=== PATIENT | male | born 2005 | race Two or more races ===

== ENCOUNTER 2023-10-06 11:14 | Outpatient (REF) | payer MEDICAID, SELFPAY ==
[2023-10-06 11:26] LABS: MANUAL DIFF FLAG NO
[2023-10-06 12:11] LABS: Basophils Percent Auto 0.4 % (0-2); Eosinophils Absolute Auto 0.2 X10*3/uL (0.0-0.4); Eosinophils Percent Auto 2.1 % (0-4); Hematocrit 43.2 % (42.0-52.0); Hemoglobin 15.2 g/dl (14.0-18.0); Imm Gran Abs Auto 0.03 X10*3/uL (0.00-0.03); Imm Gran Pct Auto 0.3 % (0.0-0.4); Lymphocytes Absolute Auto 3.7 X10*3/uL (1.2-4.9); Lymphocytes Percent Auto 40.9 % (20-40); Mean Corpuscular HGB Conc 35.2 g/dl (31.0-36.0); Mean Corpuscular Hemoglobin 32.5 pg (27.0-33.0); Mean Corpuscular Volume 92.5 fL (80.0-98.0); Mean Platelet Volume 10.2 fL (9.4-12.4); Monocytes Absolute Auto 0.5 X10*3/uL (0.1-1.2); Neutrophils Absolute Auto 4.6 x10*3/uL (2.0-8.3); Neutrophils Percent Auto 51.3 % (45-73); Platelet Count 229 X10*3/uL (160-400); Red Blood Count 4.67 X10*6/uL (4.60-5.80); Red Cell Distribution Width 13.4 % (11.0-16.0)
[2023-10-06 12:32] LABS: Estimated Average Glucose 103 mg/dL; Hemoglobin A1c % 5.2 % (<6.0)
[2023-10-06 13:27] LABS: Alanine Aminotransferase 20 U/L (0-40); Albumin Level 4.7 g/dL (3.5-5.0); Alkaline Phosphatase 74 U/L (39-117); Anion Gap 16 (12-20); Aspartate Amino Transferase 25 U/L (5-37); Bilirubin Total 1.2 mg/dL (0.0-1.0); Blood Urea Nitrogen 12 mg/dL (9-16); Calcium 10.2 mg/dL (8.4-10.2); Carbon Dioxide 26 mmol/L (22-29); Chloride 104 mmol/L (96-108); Cholesterol 144 mg/dL (<200); Estimated Glomerular Filt Rate > 60; Glucose Random 94 mg/dL (60-115); HDL Cholesterol 51 mg/dL (>40); LDL Cholesterol Calculated 75 mg/dL (<100); Potassium 4.4 mmol/L (3.3-5.1); Sodium 142 mmol/L (135-145); Total Protein 7.9 g/dL (6.5-8.0); Triglycerides 92 mg/dL (<150)
[2023-10-06 13:46] LABS: Thyroid Stimulating Hormone 1.87 uIU/mL (0.32-4.0)
== END 2023-10-06 11:15 | disposition home or self-care (01) ==
LOC: HO.LAB 11:14
PROVIDERS: PCP Internal Medicine; Visit Provider Internal Medicine
DX: Z00.01 Encounter for general adult medical examination with abnormal findings (principal); E66.9 Obesity, unspecified; F84.0 Autistic disorder; I10 Essential (primary) hypertension
CPT/HCPCS: 36415; 80053; 80061; 83036; 84443; 85025

== ENCOUNTER 2023-12-30 10:56 | Outpatient (AMB) | payer MEDICAID, SELFPAY ==
--- NOTE | 2023-12-30 10:58 | MHC.OFFVIS ---
Vital Signs 12/30/23 11:07 Weight 206 lb BP 155/64 H Blood Pressure Location Rt brachial Position Sitting Pulse 70 Intake Visit Reasons: Polypoid lesion scalp Intake Note: This patient presents for Polypoid lesion scalp. pt's grandmother c/o; reports pt was born with this, reports itchiness and now patient has a bald spot on the area from scratching. 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 The patient has history of cognitive deficits from . He is in the care and custody of his grandmother Susan Waters. He apparently has had this scalp lesion since he was a young child. However, this has increased in size. The grandmother therefore wants this excised. [facility] Medical History Scalp lesion Developmental delay, moderate Surgical History No pertinent past surgical history Social History Alcohol intake: never Patient Tobacco Use Status: Never used Tobacco Review of Systems Const Denies chills Card Denies chest pain, Denies dyspnea and Denies dyspnea on exertion Resp Denies cough, Denies dyspnea and Denies dyspnea on exertion GI Denies hematochezia and Denies change in bowel habits Denies hematuria and Denies difficulty urinating Musc Denies back pain and Denies limited range of motion Neuro Details: Developmental delay Denies focal weakness and Denies convulsions Psych Denies depression and Denies mood swings Physical Exam Vital Signs: Last Vital Signs Pulse 70 12/30/23 11:07 BP 155/64 H 12/30/23 11:07 Const General: comfortable and no acute distress HEENT Other: Scalp lesion left parietal area, about 8 mm in size, elevated, smooth and well-defined, fleshy Resp Effort & Inspection: normal respiratory effort Cardio Rate: regular rate GI Palpation (GI): Soft to palpation Assessment & Plan Assessment & Plan (1) Scalp lesion: Code(s): L98.9 - Disorder of the skin and subcutaneous tissue, unspecified Category: Medical Plan: His grandmother wants this scalp lesion excised because of increased in size. I explained to her the technique of this procedure under local anesthesia. I reviewed the risks, benefits, and alternatives. She wants to proceed The patient will therefore be brought back to the office for excision under local anesthesia. Coding Level of Care Code New Pt Level 3 (03885) Diagnoses Scalp lesion L98.9
[2023-12-30 11:07] VITALS: BP 155/64; PULSE 70
== END 2023-12-30 11:39 | disposition home or self-care (01) ==
PROVIDERS: PCP Internal Medicine; Visit Provider Surgery
DX: L98.9 Disorder of the skin and subcutaneous tissue, unspecified (principal)
CPT/HCPCS: 99203

== ENCOUNTER → 2023-12-30 10:56 | Outpatient (BNVA) | payer MEDICAID, SELFPAY | PROVIDERS: PCP Internal Medicine; Visit Provider Surgery | DX: L98.9 Disorder of the skin and subcutaneous tissue, unspecified (principal) | CPT/HCPCS: 99202 ==

== ENCOUNTER 2024-01-12 10:53 | Outpatient (AMB) | payer MEDICAID, SELFPAY ==
--- NOTE | 2024-01-12 10:54 | MHC.OFFVIS ---
Intake Visit Reasons: excision Polypoid lesion scalp Intake Note: Office procedure: excision polypoid lesion of the scalp. Watchguard Required: No Accompanied by: Grand Parent Allergies No Known Allergies [No Known Allergies*] Allergy (Unverified 01/12/24 10:55) HPI HPI excision Polypoid lesion scalp: Details: He is here for excision of a scalp lesion. [facility] Medical History Scalp lesion Developmental delay, moderate Surgical History No pertinent past surgical history Social History Alcohol intake: never Patient Tobacco Use Status: Never used Tobacco Office Procedures Excision Details: The area of the lesion was prepped and draped. Lidocaine 1% was used for local anesthesia. I made an elliptical incision around the base of the lesion with a blade 15. This was carried down through the full-thickness of the skin and subcutaneous fat to excise this entire lesion. The lesion was about 0.8 mm in size. This was sent as specimen. The incision was closed with full-thickness nylon 3-0 simple interrupted sutures. Bacitracin was applied. He tolerated procedure well. There were no immediate complications. [id number] scalp/neck/hands/feet/genitalia 0.6cm-1cm Procedure code (CPT) selection complete Assessment & Plan Assessment & Plan (1) Scalp lesion: Code(s): L98.9 - Disorder of the skin and subcutaneous tissue, unspecified Category: Medical Plan: Excision was done under local anesthesia. He tolerated the procedure well. There was minimal blood loss. He will be seen in the office her follow-up for removal sutures. He was given wound care instructions. Coding Level of Care Code Procedure Only Diagnoses Scalp lesion L98.9 CPT Codes Scalp/Neck/Hands/Feet/Genetalia - CPT: 60941-Ncfvviay scalp/neck/hands/feet/genitalia 0.6cm-1cm ([id number])
== END 2024-01-12 11:14 | disposition home or self-care (01) ==
LOC: HO.HGS 10:53
PROVIDERS: PCP Internal Medicine; Visit Provider Surgery
DX: L72.0 Epidermal cyst (principal)
CPT/HCPCS: 11421

== ENCOUNTER 2024-01-12 10:53 | Outpatient (REF) | payer MEDICAID, SELFPAY | END 2024-01-12 10:54 | disposition home or self-care (01) | LOC: HO.LNP 10:53 | PROVIDERS: PCP Internal Medicine; Visit Provider Surgery | DX: L98.9 Disorder of the skin and subcutaneous tissue, unspecified (principal); D22.9 Melanocytic nevi, unspecified; L72.0 Epidermal cyst | CPT/HCPCS: 11421; 88304; 88305 ==

== ENCOUNTER 2024-02-02 09:47 | Outpatient (AMB) | payer MEDICAID, SELFPAY ==
--- NOTE | 2024-02-02 09:56 | A.OFFVIS_ITS ---
Vital Signs 02/02/24 10:03 Weight 205 lb 15.999 oz Intake Visit Reasons: s/p remove sutures excision Polypoid lesion scalp Intake Note: This patient presents for suture removal status post excision polypoid lesion of the scalp. Pt grandmother c/o; reports no complaints. Shelter Monitor Required: No Accompanied by: Grand Parent Allergies No Known Allergies [No Known Allergies*] Allergy (Unverified 02/02/24 09:57) HPI HPI s/p remove sutures excision Polypoid lesion scalp: Details: He is here for follow-up after excision of a scalp lesion last 01/13/2024. He tolerated the procedure well. He denies significant complaints. [facility] Medical History Scalp lesion Developmental delay, moderate Surgical History No pertinent past surgical history Social History Alcohol intake: never Patient Tobacco Use Status: Never used Tobacco Review of Systems Const Denies chills and Denies fever(s) Physical Exam Const General: comfortable and no acute distress HEENT Other: Excision site is well healed, not infected Assessment & Plan Assessment & Plan (1) Scalp lesion: Code(s): L98.9 - Disorder of the skin and subcutaneous tissue, unspecified Category: Medical Plan: Status post excision. The incision is well healed. His sutures were removed. His path report shows a melanocytic nevus and a epidermal cyst. He can follow up on a p.r.n. basis. Coding Level of Care Code Global (48347) Diagnoses Scalp lesion L98.9
== END 2024-02-02 10:08 | disposition home or self-care (01) ==
PROVIDERS: PCP Internal Medicine; Visit Provider Surgery
DX: L98.9 Disorder of the skin and subcutaneous tissue, unspecified (principal)
CPT/HCPCS: 99024

== ENCOUNTER → 2024-02-02 09:47 | Outpatient (BNVA) | payer MEDICAID, SELFPAY | PROVIDERS: PCP Internal Medicine; Visit Provider Surgery | DX: L98.9 Disorder of the skin and subcutaneous tissue, unspecified (principal) | CPT/HCPCS: 99212 ==

== ENCOUNTER 2024-06-05 10:05 | Outpatient (AMB) | payer MEDICAID, SELFPAY ==
--- NOTE | 2024-06-05 10:05 | A.OFFVIS_ITS ---
Vital Signs 06/05/24 10:12 Height 5 ft 3 in Weight 199 lb BMI 35.2 BP 144/62 H Blood Pressure Location Lt brachial Position Sitting Pulse 115 H Intake Visit Reasons: Sebaceous cyst scalp Intake Note: Patient is seen in office for recurrent sebaceous cyst of the scalp. 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 He has had this for several months now. One of them had become swollen and apparently had drained according to his family He denies any significant pain at this time He has known developmental delay and has cognitive deficits. [facility] Medical History (Updated 06/05/24 @ 10:22 by Diego Lafleur MD) Scalp mass Scalp lesion Developmental delay, moderate Surgical History No pertinent past surgical history Social History Alcohol intake: never Patient Tobacco Use Status: Never used Tobacco Review of Systems Const Denies chills and Denies fever(s) Card Denies chest pain, Denies dyspnea and Denies dyspnea on exertion Resp Denies cough, Denies dyspnea and Denies dyspnea on exertion GI Denies hematochezia and Denies change in bowel habits Denies hematuria and Denies difficulty urinating Musc Denies back pain and Denies limited range of motion Neuro Denies focal weakness and Denies convulsions Psych Denies depression and Denies mood swings Physical Exam Vital Signs: Last Vital Signs Pulse 115 H 06/05/24 10:12 BP 144/62 H 06/05/24 10:12 BMI result Body Mass Index 35.2 HEENT Other: Scalp mass, subcutaneous, about 1 cm, on the occipital area Scalp mass, subcutaneous, about 0.7 cm on the left parietal area Both are noninflamed Assessment & Plan Assessment & Plan (1) Scalp mass: Code(s): R22.0 - Localized swelling, mass and lump, head Category: Medical Plan: He has 2 scalp masses as described above. This are likely to be scalp cysts. I explained the technique of excision under local anesthesia. I reviewed the risks including but not limited to bleeding and infections, as well as the benefits and alternatives The patient and his family had given consent. This will be done in the office under local anesthesia on his next visit Coding Level of Care Code Est Pt Level 3 (35055) Diagnoses Scalp mass R22.0
[2024-06-05 10:12] VITALS: BP 144/62; PULSE 115; BMI 35.2
== END 2024-06-05 10:23 | disposition home or self-care (01) ==
LOC: HO.HGS 10:06
PROVIDERS: PCP Internal Medicine; Referring Provider Internal Medicine; Visit Provider Surgery
DX: R22.0 Localized swelling, mass and lump, head (principal)
CPT/HCPCS: 99213

== ENCOUNTER → 2024-06-05 10:05 | Outpatient (BNVA) | payer MEDICAID, SELFPAY | PROVIDERS: PCP Internal Medicine; Referring Provider Internal Medicine; Visit Provider Surgery | DX: R22.0 Localized swelling, mass and lump, head (principal) | CPT/HCPCS: 99212 ==

== ENCOUNTER 2024-06-22 09:44 | Outpatient (REF) | payer MEDICAID, SELFPAY ==
--- OUTSIDE RECORDS SUMMARY | 2024-06-22 13:59 | XMS_ITS | Encounter Summary ---
Author Organization [facility] Address [address] [place] [address] Phone Care Team Providers Care Furnace Utility Operator Name Role Phone Daniel Nunez MD Primary Care Provider [phone] Encounter Details Date Type Department Care Team (Late st Contact Info) Description 12/31/2011 Documentation EM Family Medicine [address] [place] [address] Family Medicine, Physician [address] [place] [address] Social History Tobacco Use Types [...] on filedocumented in this encounter Care Teams Furnace Utility Operator Relationship Specialty Start Date End Date Daniel Nunez MD 150 [place] [address] PCP - General 10/23/16 09/02/23 documented as of this encounter
--- OUTSIDE RECORDS SUMMARY | 2024-06-22 13:59 | XMS_ITS | Encounter Summary ---
Author Organization [facility] Address [address] [place] [address] Phone Care Team Providers Care Window Clerk Name Role Phone Daniel Nunez MD Primary Care Provider [phone] Encounter Details Date Type Department Care Team (Late st Contact Info) Description 10/22/2010 Documentation EM Family Medicine [address] [place] [address] Family Medicine, Physician [address] [place] [address] Social History Tobacco Use Types [...] on filedocumented in this encounter Care Teams Window Clerk Relationship Specialty Start Date End Date Daniel Nunez MD 150 [place] [address] PCP - General 10/23/16 09/02/23 documented as of this encounter
--- OUTSIDE RECORDS SUMMARY | 2024-06-22 13:59 | XMS_ITS | Encounter Summary ---
Author Organization [facility] Address [address] [place] [address] Phone Care Team Providers Care Microfilm Mounter Name Role Phone Daniel Nunez MD Primary Care Provider [phone] Encounter Details Date Type Department Care Team (Late st Contact Info) Description 09/01/2016 Documentation EM Family Medicine [address] [place] [address] Family Medicine, Physician [address] [place] [address] Social History Tobacco Use Types [...] on filedocumented in this encounter Care Teams Microfilm Mounter Relationship Specialty Start Date End Date Daniel Nunez MD 150 [place] [address] PCP - General 10/23/16 09/02/23 documented as of this encounter
--- OUTSIDE RECORDS SUMMARY | 2024-06-22 13:59 | XMS_ITS | Clinical Summary ---
Author Organization [employer] Address [address] [facility] [address] [place] [address] Care Team Providers Care Door Operator Name Role Phone Unavailable Primary Care [...] patient's age to complete this topic Insurance [facility]
--- OUTSIDE RECORDS SUMMARY | 2024-06-22 13:59 | XMS_ITS | Encounter Summary ---
Author Organization [facility] Address [address] [place] [address] Phone Care Team Providers Care Social Contact Worker Name Role Phone Daniel Nunez MD Primary Care Provider [phone] Encounter Details Date Type Department Care Team (Late st Contact Info) Description 10/22/2010 Documentation EM Family Medicine [address] [place] [address] Family Medicine, Physician [address] [place] [address] Social History Tobacco Use [...] on filedocumented in this encounter Care Teams Social Contact Worker Relationship Specialty Start Date End Date Daniel Nunez MD 150 [facility] [place] [address] PCP - General 10/23/16 09/02/23 documented as of this encounter
--- OUTSIDE RECORDS SUMMARY | 2024-06-22 13:59 | XMS_ITS | Encounter Summary ---
Author Organization [facility] Address [address] [place] [address] Phone Care Team Providers Care Machine Strap Buckler Name Role Phone Daniel Nunez MD Primary Care Provider Encounter Details Date Type Department Care Team (Late st Contact Info) Description 12/31/2011 Documentation EM Family Medicine [address] [place] [address] Family Medicine, Physician [address] [place] [address] Social History Tobacco Use Types [...] on filedocumented in this encounter Care Teams Machine Strap Buckler Relationship Specialty Start Date End Date Daniel Nunez MD 150 [facility] [place] [address] PCP - General 10/23/16 09/02/23 documented as of this encounter
--- OUTSIDE RECORDS SUMMARY | 2024-06-22 13:59 | XMS_ITS | Encounter Summary ---
Author Organization [facility] Address [address] [place] [address] Phone Care Team Providers Care Physician Advisor Name Role Phone Daniel Nunez MD Primary Care Provider [phone] Encounter Details Date Type Department Care Team (Late st Contact Info) Description 12/31/2011 Documentation EM Family Medicine [address] [place] [address] Family Medicine, Physician [address] [place] [address] Social History Tobacco Use Types [...] on filedocumented in this encounter Care Teams Physician Advisor Relationship Specialty Start Date End Date Daniel Nunez MD 150 [place] [address] PCP - General 10/23/16 09/02/23 documented as of this encounter
--- OUTSIDE RECORDS SUMMARY | 2024-06-22 13:59 | XMS_ITS | Encounter Summary ---
Author Organization [facility] Address [address] [place] [address] Phone Care Team Providers Care Assistant News Director Name Role Phone Daniel Nunez MD Primary Care Provider [phone] Encounter Details Date Type Department Care Team (Late st Contact Info) Description 05/14/2015 Documentation EM Family Medicine [address] [place] [address] Family Medicine, Physician [address] [place] [address] Social History Tobacco Use Types [...] on filedocumented in this encounter Care Teams Assistant News Director Relationship Specialty Start Date End Date Daniel Nunez MD 150 [facility] [place] [address] PCP - General 10/23/16 09/02/23 documented as of this encounter
--- OUTSIDE RECORDS SUMMARY | 2024-06-22 13:59 | XMS_ITS | Encounter Summary ---
Author Organization [facility] Address [address] [place] [address] Phone Care Team Providers Care Operations Manager Assistant Name Role Phone Daneil Nunez MD Primary Care Provider [phone] Encounter Details Date Type Department Care Team (Late st Contact Info) Description 12/22/2013 Documentation EM Family Medicine [address] [place] [address] Family Medicine, Physician [address] [place] [address] Social History Tobacco Use Types [...] on filedocumented in this encounter Care Teams Operations Manager Assistant Relationship Specialty Start Date End Date Daniel Nunez MD 150 [facility] [place] [address] PCP - General 10/23/16 09/02/23 documented as of this encounter
--- OUTSIDE RECORDS SUMMARY | 2024-06-22 13:59 | XMS_ITS | Encounter Summary ---
Author Organization [facility] Address [address] [place] [address] Phone Care Team Providers Care Ammonia Print Operator Name Role Phone Daniel Nunez MD Primary Care Provider [phone] Encounter Details Date Type Department Care Team (Late st Contact Info) Description 02/04/2016 Documentation EM Family Medicine [address] [place] [address] Family Medicine, Physician [address] [place] [address] Social History Tobacco Use Types [...] on filedocumented in this encounter Care Teams Ammonia Print Operator Relationship Specialty Start Date End Date Daniel Nunez MD 150 [facility] [place] [address] PCP - General 10/23/16 09/02/23 documented as of this encounter
--- OUTSIDE RECORDS SUMMARY | 2024-06-22 13:59 | XMS_ITS | Encounter Summary ---
Author Organization [facility] Address [address] [place] [address] Phone Care Team Providers Care Cnmt Name Role Phone Daniel Nunez MD Primary Care Provider [phone] Encounter Details Date Type Department Care Team (Late st Contact Info) Description 05/14/2015 Documentation EM Family Medicine [address] [place] [address] Family Medicine, Physician [address] [place] [address] Social History Tobacco Use Types [...] on filedocumented in this encounter Care Teams Cnmt Relationship Specialty Start Date End Date Daniel Nunez MD 150 [facility] [place] [address] PCP - General 10/23/16 09/02/23 documented as of this encounter
--- OUTSIDE RECORDS SUMMARY | 2024-06-22 13:59 | XMS_ITS | Encounter Summary ---
Author Organization [facility] Address [address] [place] [address] Phone Care Team Providers Care Company Truck Driver Name Role Phone Daniel Nunez MD Primary Care Provider [phone] Encounter Details Date Type Department Care Team (Late st Contact Info) Description 12/31/2011 Documentation EM Family Medicine [address] [place] [address] Family Medicine, Physician [address] [place] [address] Social History Tobacco Use Types [...] on filedocumented in this encounter Care Teams Company Truck Driver Relationship Specialty Start Date End Date Daniel Nunez MD 150 [place] [address] PCP - General 10/23/16 09/02/23 documented as of this encounter
--- OUTSIDE RECORDS SUMMARY | 2024-06-22 13:59 | XMS_ITS | Clinical Summary ---
Author Organization [facility] Address [address] [place] [address] Phone Care Team Providers Care Scaffolder Name Role Phone Unavailable Primary Care Provider [...] 10:41 AM EDT): Has an appointment and [facility]. Psychosocial stressors 08/12/2017 Overview (08/17/2018): Lives with grandmother, yoana with bio father in [place] PDD (pervasive developmental disorder) 0 Assessment & [...] 05/19/2016 Meningococcal Vaccine Completed 08/22/2019, 017 Insurance [facility] NON PCC [facility] Address: [facility] [address] [place] [address]
--- OUTSIDE RECORDS SUMMARY | 2024-06-22 13:59 | XMS_ITS | Encounter Summary ---
Author Organization [facility] Address [address] [place] [address] Phone Care Team Providers Care Machine Or Machinery Mechanic Name Role Phone Daniel Nunez MD Primary Care Provider [phone] Encounter Details Date Type Department Care Team (Late st Contact Info) Description 12/31/2011 Documentation EM Family Medicine [address] [place] [address] Family Medicine, Physician [address] [place] [address] Social History Tobacco Use Types [...] filedocumented in this encounter Care Teams Machine Or Machinery Mechanic Relationship Specialty Start Date End Date Daniel Nunez MD 150 [facility] [place] [address] PCP - General 10/23/16 09/02/23 documented as of this encounter
--- OUTSIDE RECORDS SUMMARY | 2024-06-22 13:59 | XMS_ITS | Encounter Summary ---
Author Organization [facility] Address [address] [place] [address] Phone Care Team Providers Care Technician Terminal And Repeater Name Role Phone Daniel Nunez MD Primary Care Provider [phone] Encounter Details Date Type Department Care Team (Late st Contact Info) Description 02/08/2013 Documentation EM Family Medicine [address] [place] [address] Family Medicine, Physician [address] [place] [address] Social History Tobacco Use Types [...] on filedocumented in this encounter Care Teams Technician Terminal And Repeater Relationship Specialty Start Date End Date Daniel Nunez MD 150 [facility] [place] [address] PCP - General 10/23/16 09/02/23 documented as of this encounter
--- OUTSIDE RECORDS SUMMARY | 2024-06-22 13:59 | XMS_ITS | Encounter Summary ---
Author Organization [facility] Address [address] [place] [address] Phone Care Team Providers Care Processing Tech Name Role Phone Daniel Nunez MD Primary Care Provider [phone] Encounter Details Date Type Department Care Team (Late st Contact Info) Description 12/22/2013 Documentation EM Family Medicine [address] [place] [address] Family Medicine, Physician [address] [place] [address] Social History Tobacco Use Types [...] on filedocumented in this encounter Care Teams Processing Tech Relationship Specialty Start Date End Date Daniel Nunez MD 150 [place] [address] PCP - General 10/23/16 09/02/23 documented as of this encounter
--- OUTSIDE RECORDS SUMMARY | 2024-06-22 13:59 | XMS_ITS | Encounter Summary ---
Author Organization [facility] Address [address] [place] [address] Phone Care Team Providers Care Diesel Locomotive Crane Operator Name Role Phone Daniel Nunez MD Primary Care Provider [phone] Encounter Details Date Type Department Care Team (Late st Contact Info) Description 12/04/2009 Documentation EM Family Medicine [address] [place] [address] Family Medicine, Physician [address] [place] [address] Social History Tobacco Use Types [...] on filedocumented in this encounter Care Teams Diesel Locomotive Crane Operator Relationship Specialty Start Date End Date Daniel Nunez MD 150 [facility] [place] [address] PCP - General 10/23/16 09/02/23 documented as of this encounter
--- OUTSIDE RECORDS SUMMARY | 2024-06-22 13:59 | XMS_ITS | Encounter Summary ---
Author Organization [facility] Address [address] [place] [address] Phone Care Team Providers Care Senior Auditor Name Role Phone Daniel Nunez MD Primary Care Provider [phone] Encounter Details Date Type Department Care Team (Late st Contact Info) Description 12/22/2013 Documentation EM Family Medicine [address] [place] [address] Family Medicine, Physician [address] [place] [address] Social History Tobacco Use Types [...] on filedocumented in this encounter Care Teams Senior Auditor Relationship Specialty Start Date End Date Daniel Nunez MD 150 [place] [address] PCP - General 10/23/16 09/02/23 documented as of this encounter
--- OUTSIDE RECORDS SUMMARY | 2024-06-22 13:59 | XMS_ITS | Encounter Summary ---
Author Organization [facility] Address [address] [place] [address] Phone Care Team Providers Care Animator Name Role Phone Daniel Nunez MD Primary Care Provider [phone] Encounter Details Date Type Department Care Team (Late st Contact Info) Description 10/29/2016 Conversion Encounter [facility] [address] [place] [address] Social History Tobacco Use Types Packs/Day Years [...] on filedocumented in this encounter Care Teams Animator Relationship Specialty Start Date End Date Daniel Nunez MD 150 [place] [address] PCP - General 10/23/16 09/02/23 documented as of this encounter
--- OUTSIDE RECORDS SUMMARY | 2024-06-22 13:59 | XMS_ITS | Encounter Summary ---
Author Organization [facility] Address [address] [place] [address] Phone Care Team Providers Care Check Writer Name Role Phone Daniel Nunez MD Primary Care Provider [phone] Encounter Details Date Type Department Care Team (Late st Contact Info) Description 05/15/2015 Documentation EM Family Medicine [address] [place] [address] Family Medicine, Physician [address] [place] [address] Social History Tobacco Use Types [...] on filedocumented in this encounter Care Teams Check Writer Relationship Specialty Start Date End Date Daniel Nunez MD 150 [facility] [place] [address] PCP - General 10/23/16 09/02/23 documented as of this encounter
--- OUTSIDE RECORDS SUMMARY | 2024-06-22 13:59 | XMS_ITS | Encounter Summary ---
Author Organization [facility] Address [address] [place] [address] Phone Care Team Providers Care Heel Emery Buffer Name Role Phone Daniel Nunez MD Primary Care Provider [phone] Encounter Details Date Type Department Care Team (Late st Contact Info) Description 02/08/2013 Documentation EM Family Medicine [address] [place] [address] Family Medicine, Physician [address] [place] [address] Social History Tobacco Use Types [...] on filedocumented in this encounter Care Teams Heel Emery Buffer Relationship Specialty Start Date End Date Daniel Nunez MD 150 [place] [address] PCP - General 10/23/16 09/02/23 documented as of this encounter
--- OUTSIDE RECORDS SUMMARY | 2024-06-22 13:59 | XMS_ITS | Encounter Summary ---
Author Organization [facility] Address [address] [place] [address] Phone Care Team Providers Care Foot Cutter Name Role Phone Daniel Nunez MD Primary Care Provider [phone] Encounter Details Date Type Department Care Team (Late st Contact Info) Description 10/22/2010 Documentation EM Family Medicine [address] [place] [address] Family Medicine, Physician [address] [...] on filedocumented in this encounter Care Teams Foot Cutter Relationship Specialty Start Date End Date Daniel Nunez MD 150 [place] [address] PCP - General 10/23/16 09/02/23 documented as of this encounter
--- OUTSIDE RECORDS SUMMARY | 2024-06-22 13:59 | XMS_ITS | Encounter Summary ---
Author Organization [facility] Address [address] [place] [address] Phone Care Team Providers Care Flight Security Specialist Name Role Phone Daniel Nunez MD Primary Care Provider [phone] Reason for Visit * Reason Comments Med Change Request Encounter Details Date Type Department Care Team (Late st Contact Info) Description 01/05/2023 Refill [facility] [place] 150 [place] [address] Daniel Nunez MD 150 [place] [address] Pharyngitis, unspecified etiology Social History Tobacco Use [...] etiology documented in this encounter Care Teams Flight Security Specialist Relationship Specialty Start Date End Date Daniel Nunez MD [address] [place] [address] [place] [address] PCP - General 10/23/16 09/02/23 documented as of this encounter
--- OUTSIDE RECORDS SUMMARY | 2024-06-22 13:59 | XMS_ITS | Encounter Summary ---
Author Organization [facility] Address [address] [place] [address] Phone Care Team Providers Care Forklift Material Handler Name Role Phone Daniel Nunez MD Primary Care Provider [phone] Encounter Details Date Type Department Care Team (Late st Contact Info) Description 12/28/2013 Documentation EM Family Medicine [address] [place] [address] Family Medicine, Physician [address] [place] [address] Social History Tobacco Use Types [...] on filedocumented in this encounter Care Teams Forklift Material Handler Relationship Specialty Start Date End Date Daniel Nunez MD 150 [facility] [place] [address] PCP - General 10/23/16 09/02/23 documented as of this encounter
--- OUTSIDE RECORDS SUMMARY | 2024-06-22 13:59 | XMS_ITS | Encounter Summary ---
Author Organization [facility] Address [address] [place] [address] Phone Care Team Providers Care Correctional Facility Nurse Name Role Phone Daniel Nunez MD Primary Care Provider Encounter Details Date Type Department Care Team (Late st Contact Info) Description 05/20/2016 Documentation EM Family Medicine [address] [place] [address] Family Medicine, Physician [address] [place] [address] Social History Tobacco Use Types [...] on filedocumented in this encounter Care Teams Correctional Facility Nurse Relationship Specialty Start Date End Date Daniel Nunez MD 150 [facility] [place] [address] PCP - General 10/23/16 09/02/23 documented as of this encounter
--- OUTSIDE RECORDS SUMMARY | 2024-06-22 13:59 | XMS_ITS | Encounter Summary ---
Author Organization [facility] Address [address] [place] [address] Phone Care Team Providers Care Hydraulic Riveter Name Role Phone Daniel Nunez MD Primary Care Provider [phone] Encounter Details Date Type Department Care Team (Late st Contact Info) Description 12/28/2013 Documentation EM Family Medicine [address] [place] [address] Family Medicine, Physician [address] [place] [address] Social History Tobacco Use Types [...] on filedocumented in this encounter Care Teams Hydraulic Riveter Relationship Specialty Start Date End Date Daniel Nunez MD 150 [place] [address] PCP - General 10/23/16 09/02/23 documented as of this encounter
--- OUTSIDE RECORDS SUMMARY | 2024-06-22 13:59 | XMS_ITS | Encounter Summary ---
Author Organization [facility] Address [address] [place] [address] Phone Care Team Providers Care Segmental Wall Installer Name Role Phone Daniel Nunez MD Primary Care Provider [phone] Encounter Details Date Type Department Care Team (Late st Contact Info) Description 02/08/2013 Documentation EM Family Medicine [address] [place] [address] Family Medicine, Physician [address] [place] [address] Social History Tobacco Use Types [...] on filedocumented in this encounter Care Teams Segmental Wall Installer Relationship Specialty Start Date End Date Daniel Nunez MD [address] [facility] [place] [address] PCP - General 10/23/16 09/02/23 documented as of this encounter
== END 2024-06-22 09:45 | disposition home or self-care (01) ==
LOC: HO.LNP 09:44
PROVIDERS: PCP Internal Medicine; Visit Provider Surgery
DX: L72.9 Follicular cyst of the skin and subcutaneous tissue, unspecified (principal)
CPT/HCPCS: 11422; 88304; 88305

== ENCOUNTER 2024-06-22 09:44 | Outpatient (AMB) | payer MEDICAID, SELFPAY ==
--- NOTE | 2024-06-22 09:48 | MHC.OFFVIS ---
Vital Signs 06/22/24 09:52 Height 5 ft 3 in Weight 200 lb BMI 35.4 BP 144/66 H Blood Pressure Location Rt brachial Position Sitting Pulse 114 H Intake Visit Reasons: Excision Sebaceous cyst scalp Intake Note: Patient here for excision of sebaceous cyst on scalp. Patient feeling anxious about procedure. Risk Compliance Analyst Required: No Accompanied by: Self / Same As Patient Allergies No Known Allergies [No Known Allergies*] Allergy (Unverified 06/22/24 09:52) HPI HPI Excision Sebaceous cyst scalp: Details: He is here for excision of 2 scalp cysts. [facility] Medical History (Updated 06/22/24 @ 10:37 by Diego Lafleur MD) Scalp cyst Scalp mass Scalp lesion Developmental delay, moderate Surgical History No pertinent past surgical history Social History Alcohol intake: never Patient Tobacco Use Status: Never used Tobacco Physical Exam Vital Signs: Last Vital Signs Pulse 114 H 06/22/24 09:52 BP 144/66 H 06/22/24 09:52 BMI result Body Mass Index 35.4 Office Procedures Excision Details: He had 2 scalp cysts, 1 on the occipital area measuring about 1.5 cm and another 1 about 1 cm on the left parietotemporal area. He was placed prone. The area of the scalp cysts on the occipital region was prepped and draped. Lidocaine 1% was used for local anesthesia. I made an elliptical incision on the skin surrounding this cystic induration with a blade 15. And this was carried down through the full-thickness of the skin and entire indurated area including the subcutaneous layer. This was sent as a specimen. I closed the incision with full-thickness nylon 3-0 simple interrupted sutures We then proceeded to prepped and draped the 2nd area on the left side. I used lidocaine 1% for local anesthesia. I made the elliptical incision on the skin with a blade 15. This carried down through the full-thickness of the skin and subcutaneous layer to excise this entire indurated tissue. This was sent as specimen. I closed the incision with full-thickness nylon 3-0 simple interrupted sutures. He tolerated procedure well. There were no immediate complications. He was note of good hemostasis postop. He had about 25 cc of blood loss. [id number]-Lpqquiwv scalp/neck/hands/feet/genitalia 0.6cm-1cm 20271-Yruegyzr scalp/neck/hands/feet/genitalia 1.1cm-2cm Procedure code (CPT) selection complete Assessment & Plan Assessment & Plan (1) Scalp cyst: Code(s): L72.9 - Follicular cyst of the skin and subcutaneous tissue, unspecified Category: Medical Plan: He had 2 scalp cysts excised. He was given wound care instructions. I will see him in the office in about 2 weeks for removal sutures. Coding Level of Care Code Procedure Only Diagnoses Scalp cyst L72.9 CPT Codes Scalp/Neck/Hands/Feet/Genetalia - CPT: 89204-Zwpxlpyo scalp/neck/hands/feet/genitalia 0.6cm-1cm ([id number]) Scalp/Neck/Hands/Feet/Genetalia - CPT: 69489-Dowmlcvs scalp/neck/hands/feet/genitalia 1.1cm-2cm ([id number])
[2024-06-22 09:52] VITALS: BP 144/66; PULSE 114; BMI 35.4
--- OUTSIDE RECORDS SUMMARY | 2024-06-22 10:58 | XMS_ITS | Encounter Summary ---
Author Organization [facility] Address [address] [place] [address] Phone Care Team Providers Care Manuscript Editor Name Role Phone Daniel Nunez MD Primary Care Provider [phone] Encounter Details Date Type Department Care Team (Late st Contact Info) Description 12/31/2011 Documentation EM Family Medicine [address] [place] [address] Family Medicine, Physician [address] [place] [address] Social History Tobacco Use Types Packs/Day Years Used Date Smoking Tobacco: Never Assessed Sex and Gender Information Value Date Recorded Sex Assigned at Male 08/22/2019 2:19 PM EDT Legal Sex Male 5:22 PM EDT Gender Identity Male 08/22/2019 2:19 PM EDT Sexual Orientation Don't know 08/22/2019 2: 19 PM EDT documented as of this encounter Plan of Treatment Not on file documented as of this encounter Visit Diagnoses Not on filedocumented in this encounter Care Teams Manuscript Editor Relationship Specialty Start Date End Date Daniel Nunez MD [address] [facility] [place] [address] PCP - General 10/23/16 09/02/23 documented as of this encounter
--- OUTSIDE RECORDS SUMMARY | 2024-06-22 10:58 | XMS_ITS | Encounter Summary ---
Author Organization [facility] Address [address] [place] [address] Phone Care Team Providers Care Oil And Gas Principal Name Role Phone Daniel Nunez MD Primary Care Provider [phone] Encounter Details Date Type Department Care Team (Late st Contact Info) Description 12/31/2011 Documentation EM Family Medicine [address] [place] [address] Family Medicine, Physician [address] [place] [address] Social History Tobacco Use Types [...] on filedocumented in this encounter Care Teams Oil And Gas Principal Relationship Specialty Start Date End Date Daniel Nunez MD [address] [place] [address] PCP - General 10/23/16 09/02/23 documented as of this encounter
--- OUTSIDE RECORDS SUMMARY | 2024-06-22 10:58 | XMS_ITS | Encounter Summary ---
Author Organization [facility] Address [address] [place] [address] Phone Care Team Providers Care Surgical Elastic Knitter Hand Frame Name Role Phone Daniel Nunez MD Primary Care Provider [phone] Encounter Details Date Type Department Care Team (Late st Contact Info) Description 02/08/2013 Documentation EM Family Medicine [address] [place] [address] Family Medicine, Physician [address] [place] [address] Social History Tobacco Use Types [...] on filedocumented in this encounter Care Teams Surgical Elastic Knitter Hand Frame Relationship Specialty Start Date End Date Daniel Nunez MD [address] [facility] [place] [address] PCP - General 10/23/16 09/02/23 documented as of this encounter
--- OUTSIDE RECORDS SUMMARY | 2024-06-22 10:58 | XMS_ITS | Encounter Summary ---
Author Organization [facility] Address [address] [place] [id number] Phone Care Team Providers Care Assistant Director Of Admissions Name Role Phone Daniel Nunez MD Primary Care Provider [phone] Reason for Visit * Reason Comments Med Change Request Encounter Details Date Type Department Care Team (Late st Contact Info) Description 01/05/2023 Refill [facility] [address] [place] [address] Daniel Nunez MD [address] [place] [address] Pharyngitis, unspecified etiology Social History Tobacco Use Types Packs/Day Years Used Date Smoking Tobacco: Never Smokeless Tobacco: Never Alcohol Use Standard Drinks/Week Comments No 0 (1 standard drink = 0.6 oz pur e alcohol) Hunger/Food Answer Date Recorded In the last 12 months, did y ou or your family ever eat less than you felt you should because there wasn't enough money for food? No 11/12/2022 Stable Housing Answer Date Recorded Are you worried that in the next 2 months you may not have stable housing? No 11/12/2022 Transportation Concerns Answer Date Rec orded In the last 12 months, have you or your family ever had to go without healthcare because you didn't have a way to get there? No 11/12/2022 Hazards in Home Answer Date Recorded Think about the place you li ve. Do you have problems with any of the following? Pests (mice or roaches), mold, no/not working smoke detectors, water leaks, no window guards. No 2022 Financing Utilities Answer Date Recorde d In the last 12 months, has t he electric, gas, oil, or water company threatened to shut off your services in your home? No 11/12/2022 Safety at Home Answer Date Recorded Are you or your family worried about feeling saf e in your home? No 11/12/2022 Outside Support Answer Date Recorded Do you feel that you need mo re support from other people or programs to help you care for yourself or your family? No 11/12/2022 Understanding Health Concerns Answer Da te Recorded Do you need help understandi ng your or your child's healthcare needs (diagnosis, medications, plan, etc.)? No 11/12/2022 Financing Health Concerns Answer Date R ecorded In the last 12 months, was t here a time when your child needed to see a doctor or get medications or supplies but could not because of cost? No 11/12/2022 Missing School or Work Answer Date Spencer rded Did you or your child miss s chool or work because of a health problem that could have been avoided? No 11/12/2022 Sex and Gender Information Value Date Recorded Sex Assigned at Male 08/22/2019 2:19 PM EDT Legal Sex Male 5:22 PM EDT Gender Identity Male 08/22/2019 2:19 PM EDT Sexual Orientation Don't know 08/22/2019 2: 19 PM EDT documented as of this encounter Miscellaneous Notes * Telephone Encounter - Daniel Nunez MD - 01/06/2023 8:37 AM EDT Alternate scrip sent * Telephone Encounter - Daniel Nunez MD - 01/06/2023 8:36 AM EDT Alternate scrip sent. DPN * Telephone Encounter - Diomedes Pastor LPN - 01/06/2023 8:00 AM EDT Pharmacy advising chewables aren't available for 500mg. Chewables only come in 160mg. Pharmacy comment: Alternative Requested:CANT GET CHEWABLE 500MG TABS- CHEWABLE TABS COME IN 160MG. documented in this encounter Plan of Treatment Not on file documented as of this encounter Visit Diagnoses Diagnosis Pharyngitis, unspecified etiology documented in this encounter Care Teams Assistant Director Of Admissions Relationship Specialty Start Date End Date Daniel Nunez MD [address] [place] [address] [place] [address] PCP - General 10/23/16 09/02/23 documented as of this encounter
--- OUTSIDE RECORDS SUMMARY | 2024-06-22 10:58 | XMS_ITS | Encounter Summary ---
Author Organization [facility] Address [address] [place] [address] Phone Care Team Providers Care Nut Roaster Name Role Phone Daniel Nunez MD Primary Care Provider [phone] Encounter Details Date Type Department Care Team (Late st Contact Info) Description 12/31/2011 Documentation EM Family Medicine [address] [place] [address] Family Medicine, Physician [address] [place] [address] Social History Tobacco Use Types [...] on filedocumented in this encounter Care Teams Nut Roaster Relationship Specialty Start Date End Date Daniel Nunez MD [address] [facility] [place] [address] PCP - General 10/23/16 09/02/23 documented as of this encounter
--- OUTSIDE RECORDS SUMMARY | 2024-06-22 10:58 | XMS_ITS | Clinical Summary ---
Author Organization [facility] Address [address] [place] [id number] Phone Care Team Providers Care Mold Loft Worker Name Role Phone Unavailable Primary Care Provider Unavailabl e Allergies No known active allergies Medications hydrocortisone 1 % creamIndications :Seborrheic dermatitis APPLY TO RASH ON FACE TWICE A DAY DIRECTED 28.4 g 1 2 Active Additional Information Patient not taking.Reported on 04/07/2023 Fluocinolone Acetonide Scalp 0.01 % oilIndications:S eborrheic dermatitis of scalp Apply to scalp hs, cover overnight and shampoo out in the morning. 118.28 mL 3 3 Active Additional Information Patient not taking.Reported on 04/07/2023 mupirocin 2 % ointmentIndicati ons:Pustular rash Apply tid to rash in axilla as needed 30 g 3 3 Active Additional Information Patient not taking.Reported on 01/05/2023 acetaminophen 500 MG chewable tabletIndication s:Pharyngitis, unspecified etiology Chew 2 tabs q 4-6 hours prn pain/ fever 60 tablet 1 3 Active Additional Information Patient not taking.Reported on 04/07/2023 acetaminophen 160 MG chewable tabletIndication s:Pharyngitis, unspecified etiology 6 tabs po q 4-6 hours prn pain 120 tablet 1 3 Active Additional Information Patient not taking.Reported on 04/07/2023 Active Problems Problem Noted Date Diagnosed Date Seborrheic dermatitis of scalp 11/11/2021 Assessment & Plan (11/12/2022 10:50 AM EDT): Recurrent - refilled fluocinolone. Complex care coordination 08/17/2018 Overview (08/17/2018): 08/31 - had Noman Lal see GM to discuss services, make sure she is getting services Keith needs. Assessment & Plan (11/12/2022 10:55 AM EDT): Care coordination met with GM to discuss guardianship issues. Poor vision 08/12/2017 Assessment & Plan (11/12/2022 10:41 AM EDT): Has an appointment and [facility]. Psychosocial stressors 08/12/2017 Overview (08/17/2018): Lives with grandmother, yoana with bio father in [place] PDD (pervasive developmental disorder) 0 Assessment & Plan (11/12/2022 10:54 AM EDT): Recent neuropsych eval noted signif disability ,not competent to care for self independently. Immunizations Immunization Administration Dates Next Due COVID-19 Pfizer, bivalent, 12+ years 11/12/2022 COVID-19 Pfizer, yaneli-sucros e, 12+ years 11/11/2021 DTaP 5 05/27/2007, 5,2003,07/25,2003 HPV Vaccine 9 Valent 08/12/2017,05/19/2016 Hep A, ped/adol 05/13/2015,12/21/2013 Hep B, ped/adol 01/11/2004,2003,2003 Hib (HbOC) 08/07/2004 Hib (PRP-T) 2003,2003,2003 IPV 05/27/2007, 4,2003,05/23 Influenza, injectable, quadr ivalent, preservative free 11/12/2022,11/11/2021,02/15/2020,08/21,03/21/2018,02/03/2016,12/21/2013 Influenza, injectable, trivalent 02/23/2008,05/2004 Influenza, intranasal, quadrivalent 05/13/2015,1 ,02/07/2013 Influenza, intranasal, trivalent 12/30/2011 MMR 03/27/2004 MMRV 05/27/2007 Meningococcal Conj (Menactra) MCV4P 08/22/2019,0 05/19/2016 Pneumococcal Conjugate 08/07/2004,2003,01/2004 Tdap 05/13/2015 Varicella 03/27/2004 Family History Medical History Relation Name Comments Asthma Father dona Strabismus Father dona No Known Problems Half-Brother ailyn No Known Problems Half-Sister 1 glen ADD / ADHD Half-Sister 2 jaymkatya Diabetes Maternal Grandmother Heart disease (Premature) Maternal Grandmother Hyperlipidemia Maternal Grandmother No Known Problems Mother dinh torres ADD / ADHD Other Anemia Other Breast cancer Other Colon cancer Other Heart disease (Premature) Other Migraines Other Obesity Other Stroke Other Sudden Other Throat cancer Other Relation Name Status Comments Father dona Alive Father: Asthma / strabismus Half-Brother ailyn Alive Half brother (M ): Alive and well Half-Sister 1 glen Alive Half sister (M ): Alive and well, Alive and well Half-Sister 2 pabloymkatya Alive Maternal Grandmother Materna l grandmother: Heart disease Mother dinh torres Alive Mother: D epression Other Social History Tobacco Use Types Packs/Day Years [...] Don't know 08/22/2019 2: 19 PM EDT Last Filed Vital Signs Vital Sign Reading Time Taken Comments Blood Pressure 130/78 11/12/2022 10:20 AM EDT Pulse 79 11/12/2022 10:20 AM EDT Temperature 36.5 ??C (97.7 ??F) 01/05/2023 3:57 PM ED T Respiratory Rate - - Oxygen Saturation - - Inhaled Oxygen Concentration - - Weight 94.3 kg (208 lb) 01/05/2023 3:57 PM EDT Height 163.2 cm (5' 4.25 ) 11/12/2022 10:20 AM E DT Body Mass Index 35.43 11/12/2022 10:20 AM EDT Plan of Treatment Health Maintenance Due Date Last Done Comments Men B Vaccine (1 of 2 - Standard) 2019 Influenza Vaccines (#1) 2023 11/13/19, 11/11/2021, 02/15/2020, Additional history exists COVID-19 Vaccine (5 - 2023-2 5 season) 2023 11/12/2022, 11/11/2021, 03/25/2021, Additional history exists DTaP,Tdap,and Td Vaccines (7 - Td or Tdap) 05/12/2025 05/13/2015, 05/27/2007, 01/15/2005, Additional history exists Hepatitis B Vaccines Completed 01/11/2004, 2003, 2003 HIB Vaccines Completed 08/07/2004, 09/12, 2003, Additional history exists Pneumococcal Vaccine Completed 08/07/2004, 2003, 2003 IPV Vaccines Completed 05/27/2007, 12/14, 2003, Additional history exists MMR Vaccines Completed 05/27/2007, 03/27/2004 Varicella Vaccines Completed 05/27/2007, 03/27/2004 Hepatitis A Vaccines Completed 05/13/2015, 12/22/19 14 HPV Vaccines Completed 08/12/2017, 05/19/2016 Meningococcal Vaccine Completed 08/22/2019, 017 Insurance [facility] NON PCC [facility]
--- OUTSIDE RECORDS SUMMARY | 2024-06-22 10:58 | XMS_ITS | Encounter Summary ---
Author Organization [facility] Address [address] [place] [address] Phone Care Team Providers Care Spare Person Name Role Phone Daniel Nunez MD Primary Care Provider [phone] Encounter Details Date Type Department Care Team (Late st Contact Info) Description 02/08/2013 Documentation EM Family Medicine [address] [place] [address] Family Medicine, Physician [address] [place] [address] Social History Tobacco Use Types [...] on filedocumented in this encounter Care Teams Spare Person Relationship Specialty Start Date End Date Daniel Nunez MD [address] [facility] [place] [address] PCP - General 10/23/16 09/02/23 documented as of this encounter
--- OUTSIDE RECORDS SUMMARY | 2024-06-22 10:58 | XMS_ITS | Encounter Summary ---
Author Organization [facility] Address [address] [place] [address] Phone Care Team Providers Care Drafting Clerk Name Role Phone Daniel Nunez MD Primary Care Provider [phone] Encounter Details Date Type Department Care Team (Late st Contact Info) Description 12/31/2011 Documentation EM Family Medicine [address] [place] [address] Family Medicine, Physician [address] [place] [address] Social History Tobacco Use Types [...] on filedocumented in this encounter Care Teams Drafting Clerk Relationship Specialty Start Date End Date Daniel Nunez MD 150 [place] [address] PCP - General 10/23/16 09/02/23 documented as of this encounter
--- OUTSIDE RECORDS SUMMARY | 2024-06-22 10:58 | XMS_ITS | Encounter Summary ---
Author Organization [facility] Address [address] [place] [address] Phone Care Team Providers Care Business Office Coordinator Name Role Phone Daniel Nunez MD Primary Care Provider [phone] Encounter Details Date Type Department Care Team (Late st Contact Info) Description 12/31/2011 Documentation EM Family Medicine [address] [place] [address] Family Medicine, Physician [address] [place] [address] Social History Tobacco Use Types [...] on filedocumented in this encounter Care Teams Business Office Coordinator Relationship Specialty Start Date End Date Daniel Nunez MD 150 [facility] [place] [address] PCP - General 10/23/16 09/02/23 documented as of this encounter
--- OUTSIDE RECORDS SUMMARY | 2024-06-22 10:58 | XMS_ITS | Encounter Summary ---
Author Organization [facility] Address [address] [place] [address] Phone Care Team Providers Care Marble Finisher Name Role Phone Daniel Nunez MD Primary Care Provider [phone] Encounter Details Date Type Department Care Team (Late st Contact Info) Description 02/08/2013 Documentation EM Family Medicine [address] [place] [address] Family Medicine, Physician [address] [place] [address] Social History Tobacco Use Types [...] on filedocumented in this encounter Care Teams Marble Finisher Relationship Specialty Start Date End Date Daniel Nunez MD 150 [facility] [place] [address] PCP - General 10/23/16 09/02/23 documented as of this encounter
--- OUTSIDE RECORDS SUMMARY | 2024-06-22 10:58 | XMS_ITS | Encounter Summary ---
Author Organization [facility] Address [address] [place] [address] Phone Care Team Providers Care Correction Officer Head Name Role Phone Daniel Nunez MD Primary Care Provider [phone] Encounter Details Date Type Department Care Team (Late st Contact Info) Description 12/04/2009 Documentation EM Family Medicine [address] [place] [address] Family Medicine, Physician [address] [place] [address] Social History Tobacco Use Types [...] on filedocumented in this encounter Care Teams Correction Officer Head Relationship Specialty Start Date End Date Daniel Nunez MD 150 [place] [address] PCP - General 10/23/16 09/02/23 documented as of this encounter
--- OUTSIDE RECORDS SUMMARY | 2024-06-22 10:59 | XMS_ITS | Encounter Summary ---
Author Organization [facility] Address [address] [place] [address] Phone Care Team Providers Care Truck Washer Name Role Phone Daniel Nunez MD Primary Care Provider [phone] Encounter Details Date Type Department Care Team (Late st Contact Info) Description 10/22/2010 Documentation EM Family Medicine [address] [place] [address] Family Medicine, Physician [address] [place] [address] Social History Tobacco Use Types [...] on filedocumented in this encounter Care Teams Truck Washer Relationship Specialty Start Date End Date Daniel Nunez MD 150 [facility] [address] PCP - General 10/23/16 09/02/23 documented as of this encounter
--- OUTSIDE RECORDS SUMMARY | 2024-06-22 10:59 | XMS_ITS | Encounter Summary ---
Author Organization [facility] Address [address] [place] [address] Phone Care Team Providers Care Core Composer Machine Tender Name Role Phone Daniel Nunez MD Primary Care Provider Encounter Details Date Type Department Care Team (Late st Contact Info) Description 05/14/2015 Documentation EM Family Medicine [address] [place] [address] Family Medicine, Physician [address] [place] [address] Social History Tobacco Use Types [...] on filedocumented in this encounter Care Teams Core Composer Machine Tender Relationship Specialty Start Date End Date Daniel Nunez MD 150 [facility] [place] [address] PCP - General 10/23/16 09/02/23 documented as of this encounter
--- OUTSIDE RECORDS SUMMARY | 2024-06-22 10:59 | XMS_ITS | Encounter Summary ---
Author Organization [facility] Address [address] [place] [address] Phone Care Team Providers Care Business Practices Officer Name Role Phone Daniel Nunez MD Primary Care Provider [phone] Encounter Details Date Type Department Care Team (Late st Contact Info) Description 12/28/2013 Documentation EM Family Medicine [address] [place] [address] Family Medicine, Physician [address] [place] [address] Social History Tobacco Use Types [...] filedocumented in this encounter Care Teams Business Practices Officer Relationship Specialty Start Date End Date Daniel Nunez MD 150 [facility] [place] [address] PCP - General 10/23/16 09/02/23 documented as of this encounter
--- OUTSIDE RECORDS SUMMARY | 2024-06-22 10:59 | XMS_ITS | Encounter Summary ---
Author Organization [facility] Address [address] [place] [address] Phone Care Team Providers Care Application Spec Name Role Phone Daniel Nunez MD Primary Care Provider [phone] Encounter Details Date Type Department Care Team (Late st Contact Info) Description 10/22/2010 Documentation EM Family Medicine [address] [place] [address] Family Medicine, Physician [address] [place] [address] Social History Tobacco Use Types [...] on filedocumented in this encounter Care Teams Application Spec Relationship Specialty Start Date End Date Daniel Nunez MD 150 [facility] [place] [address] PCP - General 10/23/16 09/02/23 documented as of this encounter
--- OUTSIDE RECORDS SUMMARY | 2024-06-22 10:59 | XMS_ITS | Encounter Summary ---
Author Organization [facility] Address [address] [place] [address] Phone Care Team Providers Care Meat And Seafood Clerk Name Role Phone Daniel Nunez MD Primary Care Provider [phone] Encounter Details Date Type Department Care Team (Late st Contact Info) Description 12/22/2013 Documentation EM Family Medicine [address] [place] [address] Family Medicine, Physician [address] [place] [address] Social History Tobacco Use Types [...] on filedocumented in this encounter Care Teams Meat And Seafood Clerk Relationship Specialty Start Date End Date Daniel Nunez MD 150 [place] [address] PCP - General 10/23/16 09/02/23 documented as of this encounter
--- OUTSIDE RECORDS SUMMARY | 2024-06-22 10:59 | XMS_ITS | Encounter Summary ---
Author Organization [facility] Address [address] [place] [address] Phone Care Team Providers Care Utility Specialist Name Role Phone Daniel Nunez MD Primary Care Provider [phone] Encounter Details Date Type Department Care Team (Late st Contact Info) Description 10/29/2016 Conversion Encounter [facility] [address] [place] [address] Social History Tobacco Use Types Packs/Day Years [...] on filedocumented in this encounter Care Teams Utility Specialist Relationship Specialty Start Date End Date Daniel Nunez MD 150 [place] [address] PCP - General 10/23/16 09/02/23 documented as of this encounter
--- OUTSIDE RECORDS SUMMARY | 2024-06-22 10:59 | XMS_ITS | Encounter Summary ---
Author Organization [facility] Address [address] [place] [address] Phone Care Team Providers Care Scrap Burner Name Role Phone Daniel Nunez MD Primary Care Provider [phone] Encounter Details Date Type Department Care Team (Late st Contact Info) Description 05/20/2016 Documentation EM Family Medicine [address] [place] [address] Family Medicine, Physician [address] [place] [address] Social History Tobacco Use Types [...] on filedocumented in this encounter Care Teams Scrap Burner Relationship Specialty Start Date End Date Daniel Nunez MD [address] [place] [address] PCP - General 10/23/16 09/02/23 documented as of this encounter
--- OUTSIDE RECORDS SUMMARY | 2024-06-22 10:59 | XMS_ITS | Clinical Summary ---
Author Organization [employer] Address [address] [facility] [address] [place] [address] Care Team Providers Care Dairy Powder Mixer Operator Name Role Phone Unavailable Primary Care Provider Unavailabl e Allergies No known active allergies Medications Fluocinolone Acetonide Scalp 0.01 % oil Apply to scalp hs, cover overnight and shampoo out in the morning. Active Active Problems No known active problems Social History Tobacco Use Types Packs/Day Years Used Date Smoking Tobacco: Never Smokeless Tobacco: Never Tobacco Cessation:Counseling Given: Not Answered Sex and Gender Information Value Date Recorded Sex Assigned at Male 01/12/2022 10:28 AM EDT Legal Sex Male 10:28 AM EDT Gender Identity Male 01/12/2022 10:28 AM EDT Sexual Orientation Straight 01/12/2022 10 :28 AM EDT Plan of Treatment Health Maintenance Due Date Last Done Comments Chlamydia and Gonorrhea Screening 2003 Depression Screening 2003 HIV Screening 2003 SDOH Screening 2003 Alcohol/Substance Use Screening 2015 Family Planning (PISQ) 2018 Hepatitis C Screening 2021 COVID-19 Vaccine ( season) 2023 11/12/2022, 11/11/2021, 03/25/2021, Additional history exists Influenza Vaccine (#1) 2023 , 11/11/2021, 02/15/2020, Additional history exists Tobacco Screening 09/05/2024 09/06/2023 DTaP/Tdap/Td Vaccines (7 - Td or Tdap) 05/12/2025 05/13/2015, 05/27/2007, 01/15/2005, Additional history exists Zoster Vaccines (1 of 2) 2053 RSV Patients and Patients Aged 60 years or older (1 - 1-dose 75+ series) 2078 Hepatitis B Vaccines Completed 01/11/2004, 2003, 2003 HIB Vaccines Completed 08/07/2004, 09/12, 2003, Additional history exists Pneumococcal Vaccine: Pediatrics (0 to 5 Years) and At-Risk Patients (6 to 49) Years) Aged Out 08/07/2004, 2003, 2003 No longer eligible based on patient's age to complete this topic IPV Vaccines Completed 05/27/2007, 12/14, 2003, Additional history exists Hepatitis A Vaccines Completed 05/13/2015, 12/22/19 14 HPV Vaccines Completed 08/12/2017, 05/19/2016 Meningococcal Vaccine Completed 08/22/2019, 017 RSV under 20 months Aged Out No longe r eligible based on patient's age to complete this topic Rotavirus Vaccines Aged Out No longer eligible based on patient's age to complete this topic Insurance [facility] ACO
--- OUTSIDE RECORDS SUMMARY | 2024-06-22 10:59 | XMS_ITS | Encounter Summary ---
Author Organization [facility] Address [address] [place] [address] Phone Care Team Providers Care Tack Maker Name Role Phone Daniel Nunez MD Primary Care Provider [phone] Encounter Details Date Type Department Care Team (Late st Contact Info) Description 12/28/2013 Documentation EM Family Medicine [address] [place] [address] Family Medicine, Physician [address] [place] [address] Social History Tobacco Use Types [...] on filedocumented in this encounter Care Teams Tack Maker Relationship Specialty Start Date End Date Daniel Nunez MD 150 [facility] [place] [address] PCP - General 10/23/16 09/02/23 documented as of this encounter
--- OUTSIDE RECORDS SUMMARY | 2024-06-22 10:59 | XMS_ITS | Encounter Summary ---
Author Organization [facility] Address [address] [place] [address] Phone Care Team Providers Care Metallography Teacher Name Role Phone Daniel Nunez MD Primary Care Provider [phone] Encounter Details Date Type Department Care Team (Late st Contact Info) Description 10/22/2010 Documentation EM Family Medicine [address] [place] [address] Family Medicine, Physician [address] [place] [address] Social History Tobacco Use Types [...] on filedocumented in this encounter Care Teams Metallography Teacher Relationship Specialty Start Date End Date Daniel Nunez MD 150 [facility] [place] [address] PCP - General 10/23/16 09/02/23 documented as of this encounter
--- OUTSIDE RECORDS SUMMARY | 2024-06-22 10:59 | XMS_ITS | Encounter Summary ---
Author Organization [facility] Address [address] [place] [address] Phone Care Team Providers Care Animal Surgeon Name Role Phone Daniel Nunez MD Primary Care Provider [phone] Encounter Details Date Type Department Care Team (Late st Contact Info) Description 12/22/2013 Documentation EM Family Medicine [address] [place] [address] Family Medicine, Physician [address] [place] [address] Social History Tobacco Use Types [...] on filedocumented in this encounter Care Teams Animal Surgeon Relationship Specialty Start Date End Date Daniel Nunez MD 150 [facility] [place] [address] PCP - General 10/23/16 09/02/23 documented as of this encounter
--- OUTSIDE RECORDS SUMMARY | 2024-06-22 10:59 | XMS_ITS | Encounter Summary ---
Author Organization [facility] Address [address] [place] [address] Phone Care Team Providers Care Wood Cut Engraver Name Role Phone Daniel Nunez MD Primary Care Provider [phone] Encounter Details Date Type Department Care Team (Late st Contact Info) Description 09/01/2016 Documentation EM Family Medicine [address] [place] [address] Family Medicine, Physician [address] [place] [address] Social History Tobacco Use Types [...] on filedocumented in this encounter Care Teams Wood Cut Engraver Relationship Specialty Start Date End Date Daniel Nunez MD 150 [facility] [place] [address] PCP - General 10/23/16 09/02/23 documented as of this encounter
--- OUTSIDE RECORDS SUMMARY | 2024-06-22 10:59 | XMS_ITS | Encounter Summary ---
Author Organization [facility] Address [address] [place] [address] Phone Care Team Providers Care Maintenance Representative Name Role Phone Daniel Nunez MD Primary Care Provider [phone] Encounter Details Date Type Department Care Team (Late st Contact Info) Description 05/15/2015 Documentation EM Family Medicine [address] [place] [address] Family Medicine, Physician [address] [place] [address] Social History Tobacco Use [...] on filedocumented in this encounter Care Teams Maintenance Representative Relationship Specialty Start Date End Date Daniel Nunez MD 150 [place] [address] PCP - General 10/23/16 09/02/23 documented as of this encounter
--- OUTSIDE RECORDS SUMMARY | 2024-06-22 10:59 | XMS_ITS | Encounter Summary ---
Author Organization [facility] Address [address] [place] [address] Phone Care Team Providers Care After School Program Coordinator Name Role Phone Daniel Nunez MD Primary Care Provider [phone] Encounter Details Date Type Department Care Team (Late st Contact Info) Description 05/14/2015 Documentation EM Family Medicine [address] [place] [address] Family Medicine, Physician [address] [place] [address] Social History Tobacco Use Types [...] on filedocumented in this encounter Care Teams After School Program Coordinator Relationship Specialty Start Date End Date Daniel Nunez MD 150 [facility] [place] [address] PCP - General 10/23/16 09/02/23 documented as of this encounter
--- OUTSIDE RECORDS SUMMARY | 2024-06-22 10:59 | XMS_ITS | Encounter Summary ---
Author Organization [facility] Address [address] [place] [address] Phone Care Team Providers Care Sequins Winder Name Role Phone Daniel Nunez MD Primary Care Provider [phone] Encounter Details Date Type Department Care Team (Late st Contact Info) Description 02/04/2016 Documentation EM Family Medicine [address] [place] [address] Family Medicine, Physician [address] [place] [address] Social History Tobacco Use Types [...] on filedocumented in this encounter Care Teams Sequins Winder Relationship Specialty Start Date End Date Daniel Nunez MD [address] [facility] [place] [address] PCP - General 10/23/16 09/02/23 documented as of this encounter
--- OUTSIDE RECORDS SUMMARY | 2024-06-22 10:59 | XMS_ITS | Encounter Summary ---
Author Organization [facility] Address [address] [place] [address] Phone Care Team Providers Care Toll Collector Supervisor Name Role Phone Daniel Nunez MD Primary Care Provider [phone] Encounter Details Date Type Department Care Team (Late st Contact Info) Description 12/22/2013 Documentation EM Family Medicine [address] [place] [address] Family Medicine, Physician [address] [place] [address] Social History Tobacco Use Types [...] on filedocumented in this encounter Care Teams Toll Collector Supervisor Relationship Specialty Start Date End Date Daniel Nunez MD 150 [place] [address] PCP - General 10/23/16 09/02/23 documented as of this encounter
== END 2024-06-22 10:54 | disposition home or self-care (01) ==
LOC: HO.HGS 09:45
PROVIDERS: PCP Internal Medicine; Visit Provider Surgery
DX: L72.0 Epidermal cyst (principal)
CPT/HCPCS: 11422

== ENCOUNTER 2024-07-06 12:37 | Outpatient (AMB) | payer MEDICAID, SELFPAY ==
--- NOTE | 2024-07-06 12:44 | A.OFFVIS_ITS ---
Vital Signs 07/06/24 13:00 Height 5 ft 3 in Weight 198 lb 6.656 oz BMI 35.1 Intake Visit Reasons: S/p exc pilar cyst~ scalp Intake Note: Patient here for post op assessment post excision of sebaceous cyst on scalp. Patient c/o: here for suture removal denies any concerns Supply Chain Program Manager Required: No Accompanied by: Mother Allergies No Known Allergies [No Known Allergies*] Allergy (Unverified 06/22/24 09:52) HPI HPI S/p exc pilar cyst~ scalp: Details: He underwent excision of 2 scalp cysts last 06/22/2024 under local anesthesia in the office. He tolerated the procedure well. He currently denies significant complaints. [facility] Medical History Scalp cyst Scalp mass Scalp lesion Developmental delay, moderate Surgical History No pertinent past surgical history Social History Alcohol intake: never Patient Tobacco Use Status: Never used Tobacco Review of Systems Const Denies chills and Denies fever(s) Physical Exam Vital Signs: BMI result Body Mass Index 35.1 Const General: comfortable and no acute distress HEENT Other: Excision sites x2 are both healing well, sutures intact, no signs of infection Assessment & Plan Assessment & Plan (1) Scalp cyst: Code(s): L72.9 - Follicular cyst of the skin and subcutaneous tissue, unspecified Category: Medical Plan: Status post excision of scalp cysts x2. I removed his sutures. The incisions are well healed His path report shows likely ruptured epidermal cysts He can follow up on a p.r.n. basis. Coding Level of Care Code Global (15723) Diagnoses Scalp cyst L72.9
[2024-07-06 13:00] VITALS: BMI 35.1
--- OUTSIDE RECORDS SUMMARY | 2024-07-06 14:49 | XMS_ITS | Encounter Summary ---
Author Organization [facility] Address [address] [place] [address] Phone Care Team Providers Care Supervisor Alum Plant Name Role Phone Daniel Nunez MD Primary Care Provider [phone] Reason for Visit * Reason Comments Med Change Request Encounter Details Date Type Department Care Team (Late st Contact Info) Description 01/05/2023 Refill [facility] [place] [address] [place] [address] Daniel Nunez MD 150 [place] [address] Pharyngitis, unspecified etiology Social History Tobacco Use [...] etiology documented in this encounter Care Teams Supervisor Alum Plant Relationship Specialty Start Date End Date Daniel Nunez MD [address] [place] [address] KARIN [place]varado [address] PCP - General 10/23/16 09/02/23 documented as of this encounter
--- OUTSIDE RECORDS SUMMARY | 2024-07-06 14:49 | XMS_ITS | Clinical Summary ---
Author Organization [facility] Address [address] [place] [address] Phone Care Team Providers Care Marketing Technologist Name Role Phone Unavailable Primary Care Provider [...] 10:41 AM EDT): Has an appointment and [facility]. Psychosocial stressors 08/12/2017 Overview (08/17/2018): Lives with grandmother, yoana with bio father in [place] PDD (pervasive developmental disorder) 0 Assessment & [...] 05/19/2016 Meningococcal Vaccine Completed 08/22/2019, 017 Insurance [facility] NON PCC [facility] A[facility] Address: [facility] [address] [place] [address]
--- OUTSIDE RECORDS SUMMARY | 2024-07-06 14:50 | XMS_ITS | Encounter Summary ---
Author Organization [facility] Address [address] [place] [address] Phone Care Team Providers Care Sports Apparel Internship Name Role Phone Daniel Nunez MD Primary Care Provider [phone] Encounter Details Date Type Department Care Team (Late st Contact Info) Description 10/22/2010 Documentation EM Family Medicine [address] [place] [address] Family Medicine, Physician [address] [place] [address] Social History Tobacco Use Types [...] on filedocumented in this encounter Care Teams Sports Apparel Internship Relationship Specialty Start Date End Date Daniel Nunez MD 150 [place] [address] PCP - General 10/23/16 09/02/23 documented as of this encounter
--- OUTSIDE RECORDS SUMMARY | 2024-07-06 14:50 | XMS_ITS | Encounter Summary ---
Author Organization [facility] Address [address] [place] [address] Phone Care Team Providers Care Siding Mechanic Name Role Phone Daniel Nunez MD Primary Care Provider [phone] Encounter Details Date Type Department Care Team (Late st Contact Info) Description 02/08/2013 Documentation EM Family Medicine [address] [place] [address] Family Medicine, Physician [address] [place] [address] Social History Tobacco Use Types [...] on filedocumented in this encounter Care Teams Siding Mechanic Relationship Specialty Start Date End Date Daniel Nunez MD 150 [facility] [place] [address] PCP - General 10/23/16 09/02/23 documented as of this encounter
--- OUTSIDE RECORDS SUMMARY | 2024-07-06 14:50 | XMS_ITS | Encounter Summary ---
Author Organization [facility] Address [address] [place] [address] Phone Care Team Providers Care Ad Copy Writer Name Role Phone Daniel Nunez MD Primary Care Provider [phone] Encounter Details Date Type Department Care Team (Late st Contact Info) Description 12/31/2011 Documentation EM Family Medicine [address] [place] [address] Family Medicine, Physician [address] [place] [address] Social History Tobacco Use Types [...] on filedocumented in this encounter Care Teams Ad Copy Writer Relationship Specialty Start Date End Date Daniel Nunez MD 150 [place] [address] PCP - General 10/23/16 09/02/23 documented as of this encounter
--- OUTSIDE RECORDS SUMMARY | 2024-07-06 14:50 | XMS_ITS | Encounter Summary ---
Author Organization [facility] Address [address] [place] [address] Phone Care Team Providers Care Label Operator Name Role Phone Daniel Nunez MD Primary Care Provider [phone] Encounter Details Date Type Department Care Team (Late st Contact Info) Description 12/22/2013 Documentation EM Family Medicine [address] [place] [address] Family Medicine, Physician [address] [place] [address] Social History Tobacco Use Types [...] on filedocumented in this encounter Care Teams Label Operator Relationship Specialty Start Date End Date Daniel Nunez MD 150 [place] [address] PCP - General 10/23/16 09/02/23 documented as of this encounter
--- OUTSIDE RECORDS SUMMARY | 2024-07-06 14:50 | XMS_ITS | Encounter Summary ---
Author Organization [facility] Address [address] [place] [address] Phone Care Team Providers Care Rn Informatics Name Role Phone Daniel Nunez MD Primary Care Provider [phone] Encounter Details Date Type Department Care Team (Late st Contact Info) Description 12/28/2013 Documentation EM Family Medicine [address] [place] [address] Family Medicine, Physician [address] [place] [address] Social History Tobacco Use Types [...] on filedocumented in this encounter Care Teams Rn Informatics Relationship Specialty Start Date End Date Daniel Nunez MD 150 [facility] [place] [address] PCP - General 10/23/16 09/02/23 documented as of this encounter
--- OUTSIDE RECORDS SUMMARY | 2024-07-06 14:50 | XMS_ITS | Encounter Summary ---
Author Organization [facility] Address [address] [place] [address] Phone Care Team Providers Care Cell Lead Name Role Phone Daniel Nunez MD Primary Care Provider [phone] Encounter Details Date Type Department Care Team (Late st Contact Info) Description 12/28/2013 Documentation EM Family Medicine [address] [place] [address] Family Medicine, Physician [address] [place] [address] Social History Tobacco Use Types [...] on filedocumented in this encounter Care Teams Cell Lead Relationship Specialty Start Date End Date Daniel Nunez MD 150 [place] [address] PCP - General 10/23/16 09/02/23 documented as of this encounter
--- OUTSIDE RECORDS SUMMARY | 2024-07-06 14:50 | XMS_ITS | Encounter Summary ---
Author Organization [facility] Address [address] [place] [address] Phone Care Team Providers Care Jumpbasting Facing Baster Name Role Phone Daniel Nunez MD Primary Care Provider Encounter Details Date Type Department Care Team (Late st Contact Info) Description 02/04/2016 Documentation EM Family Medicine [address] [place] [address] Family Medicine, Physician [address] [place] [address] Social History Tobacco Use Types [...] on filedocumented in this encounter Care Teams Jumpbasting Facing Baster Relationship Specialty Start Date End Date Daniel Nunez MD 150 [place] [address] PCP - General 10/23/16 09/02/23 documented as of this encounter
--- OUTSIDE RECORDS SUMMARY | 2024-07-06 14:50 | XMS_ITS | Encounter Summary ---
Author Organization [facility] Address [address] [place] [address] Phone Care Team Providers Care Employee Relation Manager Name Role Phone Daniel Nunez MD Primary Care Provider [phone] Encounter Details Date Type Department Care Team (Late st Contact Info) Description 12/31/2011 Documentation EM Family Medicine [address] [place] [address] Family Medicine, Physician [address] [place] [address] Social History Tobacco Use Types [...] on filedocumented in this encounter Care Teams Employee Relation Manager Relationship Specialty Start Date End Date Daniel Nunez MD 150 [facility] [place] [address] PCP - General 10/23/16 09/02/23 documented as of this encounter
--- OUTSIDE RECORDS SUMMARY | 2024-07-06 14:50 | XMS_ITS | Encounter Summary ---
Author Organization [facility] Address [address] [place] [address] Phone Care Team Providers Care Bricklayer Tender Name Role Phone Daniel Nunez MD Primary Care Provider [phone] Encounter Details Date Type Department Care Team (Late st Contact Info) Description 10/22/2010 Documentation EM Family Medicine [address] [place] [address] Family Medicine, Physician [address] [place] [address] Social History Tobacco Use Types [...] on filedocumented in this encounter Care Teams Bricklayer Tender Relationship Specialty Start Date End Date Daniel Nunez MD [address] [facility] [place] [address] PCP - General 10/23/16 09/02/23 documented as of this encounter
--- OUTSIDE RECORDS SUMMARY | 2024-07-06 14:50 | XMS_ITS | Encounter Summary ---
Author Organization [facility] Address [address] [place] [address] Phone Care Team Providers Care Rehab Office Coordinator Name Role Phone Daniel Nunez MD Primary Care Provider [phone] Encounter Details Date Type Department Care Team (Late st Contact Info) Description 05/14/2015 Documentation EM Family Medicine [address] [place] [address] Family Medicine, Physician [address] [place] [address] Social History Tobacco Use Types [...] on filedocumented in this encounter Care Teams Rehab Office Coordinator Relationship Specialty Start Date End Date Daniel Nunez MD 150 [facility] [place] [address] PCP - General 10/23/16 09/02/23 documented as of this encounter
--- OUTSIDE RECORDS SUMMARY | 2024-07-06 14:50 | XMS_ITS | Encounter Summary ---
Author Organization [facility] Address [address] [place] [address] Phone Care Team Providers Care Transcribing Machine Operator Name Role Phone Daniel Nunez MD Primary Care Provider [phone] Encounter Details Date Type Department Care Team (Late st Contact Info) Description 09/01/2016 Documentation EM Family Medicine [address] [place] [address] Family Medicine, Physician [address] [place] [address] Social History Tobacco Use [...] on filedocumented in this encounter Care Teams Transcribing Machine Operator Relationship Specialty Start Date End Date Daniel Nunez MD 150 [place] [address] PCP - General 10/23/16 09/02/23 documented as of this encounter
--- OUTSIDE RECORDS SUMMARY | 2024-07-06 14:50 | XMS_ITS | Encounter Summary ---
Author Organization [facility] Address [address] [place] [address] Phone Care Team Providers Care Mortgage Professional Name Role Phone Daniel Nunez MD Primary Care Provider [phone] Encounter Details Date Type Department Care Team (Late st Contact Info) Description 05/14/2015 Documentation EM Family Medicine [address] [place] [address] Family Medicine, Physician [address] [place] [address] Social History Tobacco Use Types [...] on filedocumented in this encounter Care Teams Mortgage Professional Relationship Specialty Start Date End Date Daniel Nunez MD 150 [facility] [place] [address] PCP - General 10/23/16 09/02/23 documented as of this encounter
--- OUTSIDE RECORDS SUMMARY | 2024-07-06 14:50 | XMS_ITS | Encounter Summary ---
Author Organization [facility] Address [address] [place] [address] Phone Care Team Providers Care Cloth Roll Winder Name Role Phone Daniel Nunez MD Primary Care Provider [phone] Encounter Details Date Type Department Care Team (Late st Contact Info) Description 10/22/2010 Documentation EM Family Medicine [address] [place] [address] Family Medicine, Physician [address] [place] [address] Social History Tobacco Use Types [...] on filedocumented in this encounter Care Teams Cloth Roll Winder Relationship Specialty Start Date End Date Daniel Nunez MD 150 [facility] [place] [address] PCP - General 10/23/16 09/02/23 documented as of this encounter
--- OUTSIDE RECORDS SUMMARY | 2024-07-06 14:50 | XMS_ITS | Encounter Summary ---
Author Organization [facility] Address [address] [place] [address] Phone Care Team Providers Care Pad Assembler Name Role Phone Daniel Nunez MD Primary Care Provider [phone] Encounter Details Date Type Department Care Team (Late st Contact Info) Description 12/31/2011 Documentation EM Family Medicine [address] [place] [address] Family Medicine, Physician [address] [place] [address] Social History Tobacco Use Types [...] on filedocumented in this encounter Care Teams Pad Assembler Relationship Specialty Start Date End Date Daniel Nunez MD 150 [facility] [place] [address] PCP - General 10/23/16 09/02/23 documented as of this encounter
--- OUTSIDE RECORDS SUMMARY | 2024-07-06 14:50 | XMS_ITS | Encounter Summary ---
Author Organization [facility] Address [address] [place] [address] Phone Care Team Providers Care Boat Oar Maker Name Role Phone Daniel Nunez MD Primary Care Provider [phone] Encounter Details Date Type Department Care Team (Late st Contact Info) Description 12/04/2009 Documentation EM Family Medicine [address] [place] [address] Family Medicine, Physician [address] [place] [address] Social History Tobacco Use Types [...] on filedocumented in this encounter Care Teams Boat Oar Maker Relationship Specialty Start Date End Date Daniel Nunez MD 150 [facility] [address] PCP - General 10/23/16 09/02/23 documented as of this encounter
--- OUTSIDE RECORDS SUMMARY | 2024-07-06 14:50 | XMS_ITS | Encounter Summary ---
Author Organization [facility] Address [address] [place] [address] Phone Care Team Providers Care Research Technologist Name Role Phone Daniel Nunez MD Primary Care Provider [phone] Encounter Details Date Type Department Care Team (Late st Contact Info) Description 02/08/2013 Documentation EM Family Medicine [address] [place] [address] Family Medicine, Physician [address] [place] [address] Social History Tobacco Use Types [...] on filedocumented in this encounter Care Teams Research Technologist Relationship Specialty Start Date End Date Daniel Nunez MD 150 [place] [address] PCP - General 10/23/16 09/02/23 documented as of this encounter
--- OUTSIDE RECORDS SUMMARY | 2024-07-06 14:50 | XMS_ITS | Encounter Summary ---
Author Organization [facility] Address [address] [place] [address] Phone Care Team Providers Care Seismology Technical Officer Name Role Phone Daniel Nunez MD Primary Care Provider [phone] Encounter Details Date Type Department Care Team (Late st Contact Info) Description 12/22/2013 Documentation EM Family Medicine [address] [place] [address] Family Medicine, Physician [address] [place] [address] Social History Tobacco Use Types [...] on filedocumented in this encounter Care Teams Seismology Technical Officer Relationship Specialty Start Date End Date Daniel Nunez MD 150 [facility] [place] [address] PCP - General 10/23/16 09/02/23 documented as of this encounter
--- OUTSIDE RECORDS SUMMARY | 2024-07-06 14:50 | XMS_ITS | Encounter Summary ---
Author Organization [facility] Address [address] [place] [address] Phone Care Team Providers Care Urgent Care Technician Name Role Phone Daniel Nunez MD Primary Care Provider [phone] Encounter Details Date Type Department Care Team (Late st Contact Info) Description 12/22/2013 Documentation EM Family Medicine [address] [place] [address] Family Medicine, Physician [address] [place] [address] Social History Tobacco Use Types [...] on filedocumented in this encounter Care Teams Urgent Care Technician Relationship Specialty Start Date End Date Daniel Nunez MD 150 [facility] [place] [address] PCP - General 10/23/16 09/02/23 documented as of this encounter
--- OUTSIDE RECORDS SUMMARY | 2024-07-06 14:50 | XMS_ITS | Encounter Summary ---
Author Organization [facility] Address [address] [place] [address] Phone Care Team Providers Care Marketing Budget Analyst Name Role Phone Daniel Nunez MD Primary Care Provider [phone] Encounter Details Date Type Department Care Team (Late st Contact Info) Description 05/15/2015 Documentation EM Family Medicine [address] [place] [address] Family Medicine, Physician [address] [place] [address] Social History Tobacco Use Types [...] on filedocumented in this encounter Care Teams Marketing Budget Analyst Relationship Specialty Start Date End Date Daniel Nunez MD 150 [place] [address] PCP - General 10/23/16 09/02/23 documented as of this encounter
--- OUTSIDE RECORDS SUMMARY | 2024-07-06 14:50 | XMS_ITS | Encounter Summary ---
Author Organization [facility] Address [address] [place] [address] Phone Care Team Providers Care Photoengraving Helper Name Role Phone Daniel Nunez MD Primary Care Provider [phone] Encounter Details Date Type Department Care Team (Late st Contact Info) Description 12/31/2011 Documentation EM Family Medicine [address] [place] [address] Family Medicine, Physician [address] [place] [address] Social History Tobacco Use Types [...] on filedocumented in this encounter Care Teams Photoengraving Helper Relationship Specialty Start Date End Date Daniel Nunez MD 150 [facility] [place] [address] PCP - General 10/23/16 09/02/23 documented as of this encounter
--- OUTSIDE RECORDS SUMMARY | 2024-07-06 14:50 | XMS_ITS | Encounter Summary ---
Author Organization [facility] Address [address] [place] [address] Phone Care Team Providers Care Wastewater Treatment Engineer Name Role Phone Daniel Nunez MD Primary Care Provider [phone] Encounter Details Date Type Department Care Team (Late st Contact Info) Description 12/31/2011 Documentation EM Family Medicine [address] [place] [address] Family Medicine, Physician [address] [place] [address] Social History Tobacco Use Types [...] on filedocumented in this encounter Care Teams Wastewater Treatment Engineer Relationship Specialty Start Date End Date Daniel Nunez MD 150 [facility] [place] [address] PCP - General 10/23/16 09/02/23 documented as of this encounter
--- OUTSIDE RECORDS SUMMARY | 2024-07-06 14:50 | XMS_ITS | Encounter Summary ---
Author Organization [facility] Address [address] [place] [address] Phone Care Team Providers Care Medical Translator Name Role Phone Daniel Nunez MD Primary Care Provider [phone] Encounter Details Date Type Department Care Team (Late st Contact Info) Description 10/29/2016 Conversion Encounter [facility] [place] [address] [place] [address] Social History Tobacco Use Types Packs/Day Years [...] on filedocumented in this encounter Care Teams Medical Translator Relationship Specialty Start Date End Date Daniel Nunez MD 150 [place] [address] PCP - General 10/23/16 09/02/23 documented as of this encounter
--- OUTSIDE RECORDS SUMMARY | 2024-07-06 14:50 | XMS_ITS | Encounter Summary ---
Author Organization [facility] Address [address] [place] [address] Phone Care Team Providers Care Foam Rubber Fabricator Name Role Phone Daniel Nunez MD Primary Care Provider [phone] Encounter Details Date Type Department Care Team (Late st Contact Info) Description 05/20/2016 Documentation EM Family Medicine [address] [place] [address] Family Medicine, Physician [address] [place] [address] Social History Tobacco Use Types [...] on filedocumented in this encounter Care Teams Foam Rubber Fabricator Relationship Specialty Start Date End Date Daniel Nunez MD 150 [facility] [place] [address] PCP - General 10/23/16 09/02/23 documented as of this encounter
--- OUTSIDE RECORDS SUMMARY | 2024-07-06 14:50 | XMS_ITS | Encounter Summary ---
Author Organization [facility] Address [address] [place] [address] Phone Care Team Providers Care Aircraft Servicer Name Role Phone Daniel Nunez MD Primary Care Provider [phone] Encounter Details Date Type Department Care Team (Late st Contact Info) Description 02/08/2013 Documentation EM Family Medicine [address] [place] [address] Family Medicine, Physician [address] [...] on filedocumented in this encounter Care Teams Aircraft Servicer Relationship Specialty Start Date End Date Daniel Nunez MD 150 [facility] [place] [address] PCP - General 10/23/16 09/02/23 documented as of this encounter
== END 2024-07-06 13:05 | disposition home or self-care (01) ==
LOC: HO.HGS 12:37
PROVIDERS: PCP Internal Medicine; Visit Provider Surgery
DX: L72.9 Follicular cyst of the skin and subcutaneous tissue, unspecified (principal)
CPT/HCPCS: 99024

== ENCOUNTER → 2024-07-06 12:37 | Outpatient (BNVA) | payer MEDICAID, SELFPAY | PROVIDERS: PCP Internal Medicine; Visit Provider Surgery | DX: Z09 Encounter for follow-up examination after completed treatment for conditions other than malignant neoplasm (principal); Z87.2 Personal history of diseases of the skin and subcutaneous tissue | CPT/HCPCS: 99212 ==

== ENCOUNTER 2024-12-09 09:47 | Outpatient (REF) | payer MEDICAID, SELFPAY ==
--- OUTSIDE RECORDS SUMMARY | 2024-12-09 09:49 | XMS_ITS | Encounter Summary ---
Author Organization [facility] Address [address] [place] [address] Phone Care Team Providers Care Photoflash Powder Mixer Name Role Phone Daniel uNnez MD Primary Care Provider [phone] Encounter Details Date Type Department Care Team (Late st Contact Info) Description 10/22/2010 Documentation EM Family Medicine [address] [place] [address] Family Medicine, Physician [address] [place] [address] Social History Tobacco Use Types [...] on filedocumented in this encounter Care Teams Photoflash Powder Mixer Relationship Specialty Start Date End Date Daniel Nunez MD 150 [facility] [place] [address] PCP - General 10/23/16 09/02/23 documented as of this encounter
--- OUTSIDE RECORDS SUMMARY | 2024-12-09 09:49 | XMS_ITS | Encounter Summary ---
Author Organization [facility] Address [address] [place] [address] Phone Care Team Providers Care Damage Appraiser Name Role Phone Daniel Nunez MD Primary Care Provider [phone] Encounter Details Date Type Department Care Team (Late st Contact Info) Description 12/31/2011 Documentation EM Family Medicine [address] [place] [address] Family Medicine, Physician [address] [place] [address] Social History Tobacco Use Types [...] on filedocumented in this encounter Care Teams Damage Appraiser Relationship Specialty Start Date End Date Daneil Nunez MD 150 [facility] [place] [place] [address] PCP - General 10/23/16 09/02/23 documented as of this encounter
--- OUTSIDE RECORDS SUMMARY | 2024-12-09 09:49 | XMS_ITS | Encounter Summary ---
Author Organization [facility] Address [address] [place] [address] Phone Care Team Providers Care Lighting Fixture Installer Name Role Phone Daniel Nunez MD Primary Care Provider [phone] Encounter Details Date Type Department Care Team (Late st Contact Info) Description 12/31/2011 Documentation EM Family Medicine [address] [place] [address] Family Medicine, Physician [address] [place] [address] Social History Tobacco Use Types [...] on filedocumented in this encounter Care Teams Lighting Fixture Installer Relationship Specialty Start Date End Date Daniel Nunez MD 150 [facility] [place] [address] PCP - General 10/23/16 09/02/23 documented as of this encounter
--- OUTSIDE RECORDS SUMMARY | 2024-12-09 09:49 | XMS_ITS | Encounter Summary ---
Author Organization [facility] Address [address] [place] [address] Phone Care Team Providers Care Account Relationship Manager Name Role Phone Daniel Nunez MD Primary Care Provider [phone] Encounter Details Date Type Department Care Team (Late st Contact Info) Description 02/08/2013 Documentation EM Family Medicine [address] [place] [address] Family Medicine, Physician [address] [place] [address] Social History Tobacco Use Types [...] on filedocumented in this encounter Care Teams Account Relationship Manager Relationship Specialty Start Date End Date Daniel Nunez MD 150 [place] [address] PCP - General 10/23/16 09/02/23 documented as of this encounter
--- OUTSIDE RECORDS SUMMARY | 2024-12-09 09:49 | XMS_ITS | Encounter Summary ---
Author Organization [facility] Address [address] [place] [address] Phone Care Team Providers Care Freelance Programmer/App Developer Name Role Phone Daniel Nunez MD Primary Care Provider [phone] Encounter Details Date Type Department Care Team (Late st Contact Info) Description 05/15/2015 Documentation EM Family Medicine [address] [place] [address] Family Medicine, Physician [address] [place] [address] Social History Tobacco Use Types [...] on filedocumented in this encounter Care Teams Freelance Programmer/App Developer Relationship Specialty Start Date End Date Daniel Nunez MD 150 [place] [address] PCP - General 10/23/16 09/02/23 documented as of this encounter
--- OUTSIDE RECORDS SUMMARY | 2024-12-09 09:49 | XMS_ITS | Encounter Summary ---
Author Organization [facility] Address [address] [place] [address] Phone Care Team Providers Care Communication Analyst Name Role Phone Daniel Nunez MD Primary Care Provider [phone] Encounter Details Date Type Department Care Team (Late st Contact Info) Description 12/28/2013 Documentation EM Family Medicine [address] [place] [address] Family Medicine, Physician [address] [place] [address] Social History Tobacco Use Types [...] on filedocumented in this encounter Care Teams Communication Analyst Relationship Specialty Start Date End Date Daniel Nunez MD 150 [facility] [address] PCP - General 10/23/16 09/02/23 documented as of this encounter
--- OUTSIDE RECORDS SUMMARY | 2024-12-09 09:49 | XMS_ITS | Encounter Summary ---
Author Organization [facility] Address [address] [place] [address] Phone Care Team Providers Care Development Coordinator Name Role Phone Daniel Nunez MD Primary Care Provider [phone] Encounter Details Date Type Department Care Team (Late st Contact Info) Description 12/04/2009 Documentation EM Family Medicine [address] [place] [address] Family Medicine, Physician [address] [place] [address] Social History Tobacco Use Types [...] on filedocumented in this encounter Care Teams Development Coordinator Relationship Specialty Start Date End Date Daniel Nunez MD 150 [facility] [place] [address] PCP - General 10/23/16 09/02/23 documented as of this encounter
--- OUTSIDE RECORDS SUMMARY | 2024-12-09 09:49 | XMS_ITS | Clinical Summary ---
Author Organization [facility] Address [address] [place] [address] Phone Care Team Providers Care Wire Transfer Clerk Name Role Phone Unavailable Primary Care Provider [...] 10:41 AM EDT): Has an appointment and [facility]. Psychosocial stressors 08/12/2017 Overview (08/17/2018): Lives with grandmother, yoana with bio father in [place] PDD (pervasive developmental disorder) 0 Assessment & [...] 79 11/12/2022 10:20 AM EDT Temperature 36.5 C (97.7 F) 01/05/2023 3:57 PM EDT Respiratory Rate - - Oxygen Saturation - - Inhaled Oxygen Concentration - - Weight 94.3 kg (208 lb) 01/05/2023 3:57 PM EDT Height 163.2 cm (5' 4.25 ) 11/12/2022 10:20 AM E DT Body Mass Index 35.43 11/12/2022 10:20 AM EDT Plan of Treatment Health Maintenance Due Date Last Done Comments Men B Vaccine (1 of 2 - Standard) 2019 Influenza Vaccines (#1) 2024 11/13/19, 11/11/2021, 02/15/2020, Additional history exists COVID-19 Vaccine (5 - 2024-2 6 season) 2024 11/12/2022, 11/11/2021, 03/25/2021, Additional history exists DTaP,Tdap,and [...] 05/19/2016 Meningococcal Vaccine Completed 08/22/2019, 017 Insurance [facility] Address: [address] [address] [place] [address]
--- OUTSIDE RECORDS SUMMARY | 2024-12-09 09:49 | XMS_ITS | Encounter Summary ---
Author Organization [facility] Address [address] [place] [address] Phone Care Team Providers Care Sort Line Worker Name Role Phone Daniel Nunez MD Primary Care Provider [phone] Encounter Details Date Type Department Care Team (Late st Contact Info) Description 12/22/2013 Documentation EM Family Medicine [address] [place] [address] Family Medicine, Physician [address] [place] [address] Social History Tobacco Use [...] on filedocumented in this encounter Care Teams Sort Line Worker Relationship Specialty Start Date End Date Daniel Nunez MD 150 [facility] [place] [address] PCP - General 10/23/16 09/02/23 documented as of this encounter
--- OUTSIDE RECORDS SUMMARY | 2024-12-09 09:49 | XMS_ITS | Encounter Summary ---
Author Organization [facility] Address [address] [place] [address] Phone Care Team Providers Care Printing Estimator Name Role Phone Daniel Nunez MD Primary Care Provider [phone] Encounter Details Date Type Department Care Team (Late st Contact Info) Description 10/22/2010 Documentation EM Family Medicine [address] [place] [address] Family Medicine, Physician [address] [place] [address] Social History Tobacco Use Types [...] on filedocumented in this encounter Care Teams Printing Estimator Relationship Specialty Start Date End Date Daniel Nunez MD 150 [facility] [place] [address] PCP - General 10/23/16 09/02/23 documented as of this encounter
--- OUTSIDE RECORDS SUMMARY | 2024-12-09 09:49 | XMS_ITS | Encounter Summary ---
Author Organization [facility] Address [address] [place] [address] Phone Care Team Providers Care Assistant Womens Volleyball Coach Name Role Phone Daniel Nunez MD Primary Care Provider [phone] Encounter Details Date Type Department Care Team (Late st Contact Info) Description 09/01/2016 Documentation EM Family Medicine [address] [place] [address] Family Medicine, Physician [address] [place] [address] Social History Tobacco Use Types [...] filedocumented in this encounter Care Teams Assistant Womens Volleyball Coach Relationship Specialty Start Date End Date Daniel Nunez MD 150 [facility] [place] [address] PCP - General 10/23/16 09/02/23 documented as of this encounter
--- OUTSIDE RECORDS SUMMARY | 2024-12-09 09:49 | XMS_ITS | Encounter Summary ---
Author Organization [facility] Address [address] [place] [address] Phone Care Team Providers Care Clay Grinder Name Role Phone Daniel Nunez MD Primary Care Provider [phone] Reason for Visit * Reason Comments Med Change Request Encounter Details Date Type Department Care Team (Late st Contact Info) Description 01/05/2023 Refill [facility] [address] [place] [address] Daniel Nunez MD 150 [place] [address] Pharyngitis, unspecified etiology Social History Tobacco Use [...] etiology documented in this encounter Care Teams Clay Grinder Relationship Specialty Start Date End Date Daniel Nunez MD [address] [place] [address] [place] [address] PCP - General 10/23/16 09/02/23 documented as of this encounter
--- OUTSIDE RECORDS SUMMARY | 2024-12-09 09:49 | XMS_ITS | Encounter Summary ---
Author Organization [facility] Address [address] [place] [address] Phone Care Team Providers Care Cell Stripper Final Name Role Phone Daniel Nunez MD Primary Care Provider [phone] Encounter Details Date Type Department Care Team (Late st Contact Info) Description 12/31/2011 Documentation EM Family Medicine [address] [place] [address] Family Medicine, Physician [address] [place] [address] Social History Tobacco Use Types [...] filedocumented in this encounter Care Teams Cell Stripper Final Relationship Specialty Start Date End Date Daniel Nunez MD 150 [facility] [place] [address] PCP - General 10/23/16 09/02/23 documented as of this encounter
--- OUTSIDE RECORDS SUMMARY | 2024-12-09 09:49 | XMS_ITS | Encounter Summary ---
Author Organization [facility] Address [address] [place] [address] Phone Care Team Providers Care Services Mgr Name Role Phone Daniel Nunez MD Primary Care Provider [phone] Encounter Details Date Type Department Care Team (Late st Contact Info) Description 05/20/2016 Documentation EM Family Medicine [address] [place] [address] Family Medicine, Physician [address] [place] [address] Social History Tobacco Use Types [...] on filedocumented in this encounter Care Teams Services Mgr Relationship Specialty Start Date End Date Daniel Nunez MD [address] [facility] [place] [address] PCP - General 10/23/16 09/02/23 documented as of this encounter
--- OUTSIDE RECORDS SUMMARY | 2024-12-09 09:49 | XMS_ITS | Encounter Summary ---
Author Organization [facility] Address [address] [place] [address] Phone Care Team Providers Care Sales Leader Name Role Phone Daniel Nunez MD Primary Care Provider [phone] Encounter Details Date Type Department Care Team (Late st Contact Info) Description 10/29/2016 Conversion Encounter [facility] [place] [address] [place] [address] Social History Tobacco Use Types Packs/Day Years [...] on filedocumented in this encounter Care Teams Sales Leader Relationship Specialty Start Date End Date Daniel Nunez MD 150 [place] [address] PCP - General 10/23/16 09/02/23 documented as of this encounter
--- OUTSIDE RECORDS SUMMARY | 2024-12-09 09:49 | XMS_ITS | Encounter Summary ---
Author Organization [facility] Address [address] [place] [address] Phone Care Team Providers Care Club Licensee Name Role Phone Daniel Nunez MD Primary Care Provider [phone] Encounter Details Date Type Department Care Team (Late st Contact Info) Description 02/08/2013 Documentation EM Family Medicine [address] [place] [address] Family Medicine, Physician [address] [place] [address] Social History Tobacco Use Types [...] on filedocumented in this encounter Care Teams Club Licensee Relationship Specialty Start Date End Date Daniel Nunez MD 150 [place] [address] PCP - General 10/23/16 09/02/23 documented as of this encounter
--- OUTSIDE RECORDS SUMMARY | 2024-12-09 09:49 | XMS_ITS | Clinical Summary ---
Author Organization [employer] Address [address] [facility] [address] [place] [address] Care Team Providers Care Layer Up Name Role Phone Unavailable Primary Care Provider Unavailabl e Allergies No known active allergies Medications Fluocinolone Acetonide Scalp 0.01 % oil Apply to scalp hs, cover overnight and shampoo out in the morning. Active Active Problems No known active problems Encounters Date Type Department Care Team Description 09/08/2024 Outside Procedure [facility] [address] [place] [address] Rei, Lillian, OD Presbyopia (Primary Dx) from Last 3 Months Social History Tobacco Use Types Packs/Day Years [...] 2003 HIV Screening 2003 SDOH Screening 2003 Disability Screening 2003 Alcohol/Substance Use Screening 2015 Family Planning (PISQ) 2018 Meningococcal B Vaccine (1 of 2 - Standard) 2019 Hepatitis C Screening 2021 Tobacco Screening 09/05/2024 09/06/2023 COVID-19 Vaccine ( season) 2024 11/12/2022, 11/11/2021, 03/25/2021, Additional history exists Influenza Vaccine (#1) 2024 3, 11/11/2021, 02/15/2020, Additional history exists DTaP/Tdap/Td Vaccines (7 - Td or Tdap) [...] Years) and At-Risk Patients (6 to 49) Years Aged Out 08/07/2004, 2003, 2003 No longer [...] patient's age to complete this topic Insurance [facility] STAND[facility]
--- OUTSIDE RECORDS SUMMARY | 2024-12-09 09:49 | XMS_ITS | Encounter Summary ---
Author Organization [facility] Address [address] [place] [address] Phone Care Team Providers Care Telegraph Service Rater Name Role Phone Daniel Nunez MD Primary Care Provider [phone] Encounter Details Date Type Department Care Team (Late st Contact Info) Description 12/31/2011 Documentation EM Family Medicine [address] [place] [address] Family Medicine, Physician [address] [place] [address] Social History Tobacco Use Types [...] on filedocumented in this encounter Care Teams Telegraph Service Rater Relationship Specialty Start Date End Date Daniel Nunez MD 150 [facility] [place] [address] PCP - General 10/23/16 09/02/23 documented as of this encounter
--- OUTSIDE RECORDS SUMMARY | 2024-12-09 09:49 | XMS_ITS | Encounter Summary ---
Author Organization [facility] Address [address] [place] [address] Phone Care Team Providers Care Abrasives Sales Representative Name Role Phone Daniel Nunez MD Primary Care Provider [phone] Encounter Details Date Type Department Care Team (Late st Contact Info) Description 12/22/2013 Documentation EM Family Medicine [address] [place] [address] Family Medicine, Physician [address] [place] [address] Social History Tobacco Use Types [...] on filedocumented in this encounter Care Teams Abrasives Sales Representative Relationship Specialty Start Date End Date Daniel Nunez MD 150 [facility] [place] [address] PCP - General 10/23/16 09/02/23 documented as of this encounter
--- OUTSIDE RECORDS SUMMARY | 2024-12-09 09:49 | XMS_ITS | Encounter Summary ---
Author Organization [facility] Address [address] [place] [address] Phone Care Team Providers Care Lumber Straightener Name Role Phone Daniel Nunez MD Primary Care Provider [phone] Encounter Details Date Type Department Care Team (Late st Contact Info) Description 02/04/2016 Documentation EM Family Medicine [address] [place] [address] Family Medicine, Physician [address] [place] [address] Social History Tobacco Use Types [...] on filedocumented in this encounter Care Teams Lumber Straightener Relationship Specialty Start Date End Date Daniel Nunez MD 150 [place] [address] PCP - General 10/23/16 09/02/23 documented as of this encounter
--- OUTSIDE RECORDS SUMMARY | 2024-12-09 09:49 | XMS_ITS | Encounter Summary ---
Author Organization [facility] Address [address] [place] [address] Phone Care Team Providers Care Nip Wrapper Name Role Phone Daniel Nunez MD Primary Care Provider [phone] Encounter Details Date Type Department Care Team (Late st Contact Info) Description 12/22/2013 Documentation EM Family Medicine [address] [place] [address] Family Medicine, Physician [address] [place] [address] Social History Tobacco Use Types [...] on filedocumented in this encounter Care Teams Nip Wrapper Relationship Specialty Start Date End Date Daniel Nunez MD 150 [place] [address] PCP - General 10/23/16 09/02/23 documented as of this encounter
--- OUTSIDE RECORDS SUMMARY | 2024-12-09 09:49 | XMS_ITS | Encounter Summary ---
Author Organization [facility] Address [address] [place] [address] Phone Care Team Providers Care Humane Officer Name Role Phone Daniel Nunez MD Primary Care Provider [phone] Encounter Details Date Type Department Care Team (Late st Contact Info) Description 05/14/2015 Documentation EM Family Medicine [address] [place] [address] Family Medicine, Physician [address] [place] [address] Social History Tobacco Use Types [...] on filedocumented in this encounter Care Teams Humane Officer Relationship Specialty Start Date End Date Daniel Nunez MD 150 [facility] [place] [address] PCP - General 10/23/16 09/02/23 documented as of this encounter
--- OUTSIDE RECORDS SUMMARY | 2024-12-09 09:49 | XMS_ITS | Encounter Summary ---
Author Organization [facility] Address [address] [place] [address] Phone Care Team Providers Care Cylinder Press Operator Apprentice Name Role Phone Daniel Nunez MD Primary Care Provider [phone] Encounter Details Date Type Department Care Team (Late st Contact Info) Description 10/22/2010 Documentation EM Family Medicine [address] [place] [address] Family Medicine, Physician [address] [place] [address] Social History Tobacco Use [...] on filedocumented in this encounter Care Teams Cylinder Press Operator Apprentice Relationship Specialty Start Date End Date Daniel Nunez MD 150 [facility] [place] [address] PCP - General 10/23/16 09/02/23 documented as of this encounter
--- OUTSIDE RECORDS SUMMARY | 2024-12-09 09:49 | XMS_ITS | Encounter Summary ---
Author Organization [facility] Address [address] [place] [address] Phone Care Team Providers Care Billing And Accounting Staff Assistant Name Role Phone Daniel Nunez MD Primary Care Provider [phone] Encounter Details Date Type Department Care Team (Late st Contact Info) Description 05/14/2015 Documentation EM Family Medicine [address] [place] [address] Family Medicine, Physician [address] [place] [address] Social History Tobacco Use Types [...] on filedocumented in this encounter Care Teams Billing And Accounting Staff Assistant Relationship Specialty Start Date End Date Daniel Nunez MD 150 [facility] [place] [address] PCP - General 10/23/16 09/02/23 documented as of this encounter
--- OUTSIDE RECORDS SUMMARY | 2024-12-09 09:49 | XMS_ITS | Encounter Summary ---
Author Organization [facility] Address [address] [place] [address] Phone Care Team Providers Care Filler Shredding Machine Loader Name Role Phone Daniel Nunez MD Primary Care Provider [phone] Encounter Details Date Type Department Care Team (Late st Contact Info) Description 12/28/2013 Documentation EM Family Medicine [address] [place] [address] Family Medicine, Physician [address] [place] [address] Social History Tobacco Use Types [...] on filedocumented in this encounter Care Teams Filler Shredding Machine Loader Relationship Specialty Start Date End Date Daniel Nunez MD 150 [facility] [address] PCP - General 10/23/16 09/02/23 documented as of this encounter
--- OUTSIDE RECORDS SUMMARY | 2024-12-09 09:49 | XMS_ITS | Encounter Summary ---
Author Organization [facility] Address [address] [place] [address] Phone Care Team Providers Care Assistant Professor In Family Studies Name Role Phone Daniel Nunez MD Primary Care Provider [phone] Encounter Details Date Type Department Care Team (Late st Contact Info) Description 12/31/2011 Documentation EM Family Medicine [address] [place] [address] Family Medicine, Physician [address] [place] [address] Social History Tobacco Use Types [...] filedocumented in this encounter Care Teams Assistant Professor In Family Studies Relationship Specialty Start Date End Date Daniel Nunez MD 150 [facility] [place] [address] PCP - General 10/23/16 09/02/23 documented as of this encounter
--- OUTSIDE RECORDS SUMMARY | 2024-12-09 09:49 | XMS_ITS | Encounter Summary ---
Author Organization [facility] Address [address] [place] [address] Phone Care Team Providers Care Ham Stripper Name Role Phone Daniel Nunez MD Primary Care Provider [phone] Encounter Details Date Type Department Care Team (Late st Contact Info) Description 02/08/2013 Documentation EM Family Medicine [address] [place] [address] Family Medicine, Physician [address] [place] [address] Social History Tobacco Use Types [...] on filedocumented in this encounter Care Teams Ham Stripper Relationship Specialty Start Date End Date Daniel Nunez MD [address] [facility] [place] [address] PCP - General 10/23/16 09/02/23 documented as of this encounter
[2024-12-09 12:09] LABS: Alanine Aminotransferase 23 U/L (0-40); Albumin Level 4.9 g/dL (3.5-5.0); Alkaline Phosphatase 79 U/L (39-117); Anion Gap 12 (12-20); Aspartate Amino Transferase 29 U/L (5-37); Blood Urea Nitrogen 10 mg/dL (9-16); Calcium 9.6 mg/dL (8.4-10.2); Carbon Dioxide 26 mmol/L (22-29); Chloride 107 mmol/L (96-108); Estimated Glomerular Filt Rate > 60; Potassium 4.0 mmol/L (3.3-5.1); Sodium 141 mmol/L (135-145); Total Protein 7.7 g/dL (6.5-8.0)
[2024-12-09 12:27] LABS: Thyroid Stimulating Hormone 1.10 uIU/mL (0.32-4.0)
== END 2024-12-09 09:48 | disposition home or self-care (01) ==
LOC: HO.LAB 09:47
PROVIDERS: PCP Internal Medicine; Visit Provider Internal Medicine
DX: Z00.00 Encounter for general adult medical examination without abnormal findings (principal); G31.84 Mild cognitive impairment of uncertain or unknown etiology; F84.0 Autistic disorder; F81.0 Specific reading disorder; Z68.35 Body mass index [BMI] 35.0-35.9, adult
CPT/HCPCS: 36415; 80053; 84443